=== PATIENT | female | born 1930 | race Caucasian/White ===

== ENCOUNTER → 2016-12-09 | Outpatient (CLI) | payer MEDICARE, OTHER ==
[~2016-12-09] MED LIST: /PANT40TA PO; ACET50TAOT PO; AMBI5TAB PO; AMLO5TAB2 PO; AMLODIPINE PO; CALC25TA PO; CALC600T21 PO; CALC600T57 PO; CARA1TAB2 PO; COUM2.5T11 PO; ECOT81TA5 PO; ELIQ5TAB PO; FERROUS SULFATE PO; LEVS0.124 SL; LIPI10TA PO; LISI40TAB PO; LISIPOW PO; LUBR0.5D OU; MELA5TAB14 PO; METO50TA2 PO; METOPROLOL PO; MIRA3350 PO; PERCOCET PO; PROT1TAB2 PO; SIMETHICONE PO; TYLE325T5 PO; TYLENOL WITH CODEINE PO; VITA100037 PO; VITMTA PO
--- NOTE | 2016-12-09 09:46 | REPMRS ---
Patient History The patient states she has not had a clinical breast exam in over a year. Patient is postmenopausal and has history of liver cancer at age 73. Family history of endometrial cancer in mother under age 50 and breast cancer in paternal aunt at age 50 or over. Digital Woman Screen Mammo: December 09, 2016 - Exam #: [id number] Bilateral CC and MLO view(s) were taken. Technologist: Ca Galvan, Technologist Prior study comparison: December 09, 2015, digital woman screen mammo performed at [facility]. December 08, 2014, digital woman screen mammo performed at [facility]. December 09, 2013, digital woman screen mammo performed at [facility]. FINDINGS: There are scattered fibroglandular densities. There has been no change in the appearance of the mammogram from the prior studies. There is a mild amount of scattered fibroglandular density which is fairly symmetric. There is no interval development of dominant mass, architectural distortion, or clustered microcalcification suggestive of malignancy. ASSESSMENT: BI-RADS/ACR category 1 mammogram. Negative. Recommendation Routine screening mammogram in 1 year (for women over age 40). This mammogram was interpreted with the aid of an FDA-approved computer-aided dectection system. Electronically Signed By: Sonu Yates MD 12/09/16 0971
== END ==
LOC: M WHC 09:04
PROVIDERS: ATTEND Family Medicine
DX: Z12.31 Encounter for screening mammogram for malignant neoplasm of breast (principal)

== ENCOUNTER → 2017-01-09 | Outpatient (REF) | payer MEDICARE, OTHER ==
[2017-01-09 12:01] LABS: BASO % 0.7 % (0.0-1.0); EOS # 0.2 K/mm3 (0.0-0.50); EOS % 3.1 % (0.0-3.0); LARGE UNSTAINED CELL # 0.3 K/mm3 (0.0-0.4); LARGE UNSTAINED CELL % 4.8 % (0.0-4.0); LYMPH % 27.3 % (24.0-44.0); MEAN CORPUSCULAR HGB CONC 32.8 g/dl (32.0-36.5); MEAN CORPUSCULAR VOLUME 100.7 fl (80.0-96.0); MONO # 0.7 K/mm3 (0.0-0.8); MONO % 11.4 % (0.0-5.0); NEUTROPHILS # 3.3 K/mm3 (1.8-7.7); NEUTROPHILS % 52.7 % (36.0-66.0); PLATELET COUNT, AUTOMATED 225 k/mm3 (150-450); WHITE BLOOD COUNT 6.3 K/mm3 (4.0-10.0)
[2017-01-09 12:09] LABS: ANION GAP 6 MEQ/L (8-16); BLOOD UREA NITROGEN 13 MG/DL (7-18); CARBON DIOXIDE LEVEL 29 MEQ/L (21-32); CHLORIDE LEVEL 107 MEQ/L (98-107); CREATININE FOR GFR 0.89 MG/DL (0.55-1.02); GLOMERULAR FILTRATION RATE > 60.0 (>32); GLUCOSE, FASTING 92 MG/DL (83-110); POTASSIUM SERUM 4.1 MEQ/L (3.5-5.1); SODIUM LEVEL 142 MEQ/L (136-145)
[2017-01-09 12:10] LABS: ALBUMIN 3.8 GM/DL (3.2-5.2); ALBUMIN/GLOBULIN RATIO 1.46 (1.00-1.93); ALKALINE PHOSPHATASE 73 U/L (45-117); ALT/SGPT 25 U/L (12-78); AST/SGOT 21 U/L (15-37); BILIRUBIN,TOTAL 0.5 MG/DL (0.2-1.0); CALCIUM LEVEL 8.8 MG/DL (8.8-10.2); CHOLESTEROL LEVEL 184 MG/DL (<200); FERRITIN 32 NG/ML (8-252); PERCENT SATURATION 24.6 % (13.2-37.4); TOTAL IRON BINDING CAPACITY 325 UG/DL (250-450); TOTAL PROTEIN 6.4 GM/DL (6.4-8.2); TRIGLYCERIDES LEVEL 65 MG/DL (<150)
== END ==
LOC: M SFHCPLAZ 08:19
PROVIDERS: ATTEND Family Medicine
DX: D50.9 Iron deficiency anemia, unspecified (principal); N18.3 Chronic kidney disease, stage 3 (moderate); E78.5 Hyperlipidemia, unspecified

== ENCOUNTER → 2017-03-15 | Outpatient (CLI) | payer MEDICARE, OTHER ==
[~2017-03-15] MED LIST changes: -CALC600T21 PO; +CALC600T60 PO; +CARA1TAB6 PO; -COUM2.5T11 PO; +COUM2.5T17 PO; -MELA5TAB14 PO; +MELA5TAB17 PO; -METO50TA2 PO; +METO50TA7 PO; +VITA100067 PO
[2017-03-15 12:10] LABS: ANION GAP 7 MEQ/L (8-16); BLOOD UREA NITROGEN 14 MG/DL (7-18); CALCIUM LEVEL 9.3 MG/DL (8.8-10.2); CARBON DIOXIDE LEVEL 28 MEQ/L (21-32); CHLORIDE LEVEL 103 MEQ/L (98-107); CREATININE FOR GFR 0.81 MG/DL (0.55-1.02); GLOMERULAR FILTRATION RATE > 60.0 (>32); GLUCOSE, FASTING 87 MG/DL (83-110); POTASSIUM SERUM 4.2 MEQ/L (3.5-5.1); SODIUM LEVEL 138 MEQ/L (136-145)
--- NOTE | 2017-03-16 15:19 | ECGEPIP ---
Stationary ECG Study [facility] Test Date: 2017-03-15 Pat Name: MAGDALENE CHAMPAGNE Department: Room: - Gender: F Aquatics Director: [facility] : [id number] Requested By: DANE Alonzo Order Number: [id number] Reading MD: Geraldo Zepeda Measurements Intervals [place] Rate: 64 P: 58 OR: 197 QRS: -4 QRSD: 106 T: 10 QT: 375 QTc: 389 Interpretive Statements SINUS RHYTHM MODERATE VOLTAGE CRITERIA FOR LVH Poor R-wave progression. Minor nonspecific ST-T abnormalities. No significant change compared with 11/17/2015. Electronically Signed On 03-16-2017 15:18:57 EDT by Geraldo Zepeda
== END ==
LOC: M LAB 10:40
PROVIDERS: ATTEND Ophthalmology
DX: H25.12 Age-related nuclear cataract, left eye (principal)

== ENCOUNTER → 2017-05-11 | Outpatient (REF) | payer MEDICARE, OTHER ==
[2017-05-11 12:57] LABS: INR 1.16
[2017-05-11 12:59] LABS: BASO % 0.6 % (0.0-1.0); EOS # 0.1 K/mm3 (0.0-0.50); LARGE UNSTAINED CELL # 0.3 K/mm3 (0.0-0.4); LARGE UNSTAINED CELL % 5.3 % (0.0-4.0); LYMPH % 28.1 % (24.0-44.0); MEAN CORPUSCULAR HEMOGLOBIN 32.7 pg (27.0-33.0); MEAN CORPUSCULAR HGB CONC 32.1 g/dl (32.0-36.5); MEAN CORPUSCULAR VOLUME 101.7 fl (80.0-96.0); MONO # 0.6 K/mm3 (0.0-0.8); MONO % 10.3 % (0.0-5.0); NEUTROPHILS # 3.3 K/mm3 (1.8-7.7); NEUTROPHILS % 53.6 % (36.0-66.0); PLATELET COUNT, AUTOMATED 228 k/mm3 (150-450); RED CELL DISTRIBUTION WIDTH 13.5 % (11.5-14.5); WHITE BLOOD COUNT 6.1 K/mm3 (4.0-10.0)
[2017-05-11 13:09] LABS: VITAMIN B12 LEVEL 852 PG/ML (247-911)
[2017-05-11 13:50] LABS: ALBUMIN 3.8 GM/DL (3.2-5.2); ALBUMIN/GLOBULIN RATIO 1.27 (1.00-1.93); ALKALINE PHOSPHATASE 79 U/L (45-117); ALT/SGPT 20 U/L (12-78); ANION GAP 10 MEQ/L (8-16); AST/SGOT 19 U/L (15-37); BILIRUBIN,TOTAL 0.5 MG/DL (0.2-1.0); BLOOD UREA NITROGEN 16 MG/DL (7-18); CALCIUM LEVEL 9.1 MG/DL (8.8-10.2); CARBON DIOXIDE LEVEL 28 MEQ/L (21-32); CHLORIDE LEVEL 104 MEQ/L (98-107); CREATININE FOR GFR 0.87 MG/DL (0.55-1.02); FREE T4 1.14 NG/DL (0.76-1.46); GLOMERULAR FILTRATION RATE > 60.0 (>32); GLUCOSE, FASTING 88 MG/DL (83-110); MAGNESIUM LEVEL 2.1 MG/DL (1.8-2.4); POTASSIUM SERUM 4.1 MEQ/L (3.5-5.1); SODIUM LEVEL 142 MEQ/L (136-145); TOTAL PROTEIN 6.8 GM/DL (6.4-8.2)
[2017-05-12 11:34] LABS: PRETREATED FOLATE FOR RBCFOL 11.5 NG/ML
== END ==
LOC: M SFHCPLAZ 08:58
PROVIDERS: ATTEND Family Medicine
DX: C22.1 Intrahepatic bile duct carcinoma (principal); E78.5 Hyperlipidemia, unspecified; I10 Essential (primary) hypertension

== ENCOUNTER → 2017-08-01 | Outpatient (REF) | payer MEDICARE, OTHER | LOC: M LAB REF 19:02 | PROVIDERS: ATTEND Family Medicine | DX: C44.529 Squamous cell carcinoma of skin of other part of trunk (principal) ==

== ENCOUNTER → 2017-09-07 | Outpatient (REF) | payer MEDICARE, OTHER ==
[2017-09-07 12:21] LABS: ALBUMIN 3.8 GM/DL (3.2-5.2); ALBUMIN/GLOBULIN RATIO 1.52 (1.00-1.93); ALKALINE PHOSPHATASE 78 U/L (45-117); ALT/SGPT 20 U/L (12-78); ANION GAP 8 MEQ/L (8-16); AST/SGOT 20 U/L (7-37); BILIRUBIN,TOTAL 0.5 MG/DL (0.2-1.0); BLOOD UREA NITROGEN 19 MG/DL (7-18); C REACTIVE PROTEIN QUANTITATIV < 0.30 MG/DL (0.00-0.30); CALCIUM LEVEL 8.6 MG/DL (8.8-10.2); CARBON DIOXIDE LEVEL 29 MEQ/L (21-32); CHLORIDE LEVEL 106 MEQ/L (98-107); CHOLESTEROL LEVEL 180 MG/DL (<200); CHOLESTEROL RISK RATIO 1.538 (<5); CPK CREATINE PHOSPHOKINASE 52 U/L (26-192); CREATININE FOR GFR 0.84 MG/DL (0.55-1.02); GLOMERULAR FILTRATION RATE > 60.0 (>32); GLUCOSE, FASTING 91 MG/DL (83-110); HDL CHOLESTEROL 117 MG/DL (>40); LDL CHOLESTEROL 50.2 MG/DL (<100); NON-HDL-C 63 MG/DL; POTASSIUM SERUM 3.9 MEQ/L (3.5-5.1); SODIUM LEVEL 143 MEQ/L (136-145); TOTAL PROTEIN 6.3 GM/DL (6.4-8.2); TRIGLYCERIDES LEVEL 64 MG/DL (<150)
[2017-09-07 12:23] LABS: TOTAL 25(OH) VITAMIN D 40.5 NG/ML (30.0-100.0)
[2017-09-07 12:24] LABS: PTH INTACT 36.7 PG/ML (14.0-72.0)
== END ==
LOC: M SFHCPLAZ 09:16
DX: E78.5 Hyperlipidemia, unspecified (principal); E55.9 Vitamin D deficiency, unspecified
CPT/HCPCS: 82550

== ENCOUNTER → 2017-09-19 | Outpatient (CLI) | payer MEDICARE, OTHER | LOC: M RAD 08:06 | DX: C22.1 Intrahepatic bile duct carcinoma (principal); N28.1 Cyst of kidney, acquired | CPT/HCPCS: 76705 ==

== ENCOUNTER 2017-09-29 02:57 | Observation (INO) | payer MEDICARE, OTHER ==
[2017-09-29] MEDS ORDERED: METOPROLOL 5 MG/5 ML VIAL As Ordered ×2 (03:28)
[2017-09-29] MEDS: METOPROLOL 5 MG/5 ML VIAL IV ×6 (03:34→03:46)
[2017-09-29] MEDS: NS 1,000 ML IV ×2 (03:38)
[2017-09-29 03:41] LABS: BASO # 0.1 10^3/uL (0.0-0.2); BASO % 0.7 % (0.0-1.0); EOS # 0.3 10^3/uL (0.0-0.50); EOS % 3.9 % (0.0-3.0); HEMATOCRIT 38.1 % (36.0-47.0); HEMOGLOBIN 12.3 g/dl (12.0-16.0); IMMATURE GRANULOCYTE % 0.1 % (0-0); LYMPH # 2.3 10^3/uL (1.5-4.5); LYMPH % 34.2 % (24.0-44.0); MEAN CORPUSCULAR HGB CONC 32.3 g/dl (32.0-36.5); MEAN CORPUSCULAR VOLUME 99.2 fl (80.0-96.0); MONO # 1.3 10^3/uL (0.0-0.8); MONO % 18.8 % (0.0-5.0); NEUTROPHILS # 2.9 10^3/uL (1.8-7.7); NEUTROPHILS % 42.3 % (36.0-66.0); PLATELET COUNT, AUTOMATED 237 10^3/uL (150-450); RED BLOOD COUNT 3.84 10^6/uL (4.00-5.40); RED CELL DISTRIBUTION WIDTH 15.2 % (11.5-14.5); WHITE BLOOD COUNT 6.9 10^3/uL (4.0-10.0)
[2017-09-29] MEDS: METOPROLOL TART 50 MG TAB PO ×10 (03:56→20:55)
[2017-09-29] MEDS: ASPIRIN 81 MG CHEW TABLET PO ×2 (03:56)
[2017-09-29 03:57] LABS: ANION GAP 7 MEQ/L (8-16); BLOOD UREA NITROGEN 20 MG/DL (7-18); CALCIUM LEVEL 9.1 MG/DL (8.8-10.2); CARBON DIOXIDE LEVEL 28 MEQ/L (21-32); CHLORIDE LEVEL 108 MEQ/L (98-107); CK-MB VALUE MASS 1.1 NG/ML (0.0-3.6); CPK CREATINE PHOSPHOKINASE 62 U/L (26-192); CREATININE FOR GFR 1.01 MG/DL (0.55-1.02); GLOMERULAR FILTRATION RATE 55.5 (>32); GLUCOSE, FASTING 117 MG/DL (70-100); MB/CK RELATIVE INDEX 1.77 (< OR =4); POTASSIUM SERUM 3.3 MEQ/L (3.5-5.1); SODIUM LEVEL 143 MEQ/L (136-145); TROPONIN I < 0.02 NG/ML (< 0.10)
[2017-09-29] MEDS ORDERED: POTASSIUM CHLORIDE 10 MEQ SR TABLET PO ×2 (05:45)
[2017-09-29] MEDS: POTASSIUM CHLORIDE 10 MEQ SR TABLET PO ×2 (05:55)
[2017-09-29] MEDS: DIGOXIN INJ 0.5 MG/2 ML AMP (J1160) IV ×8 (05:56→18:06)
[2017-09-29] MEDS: NS 500 ML IV ×2 (05:58)
[2017-09-29] MEDS ORDERED: POLYVINYL ALCOHOL OPHTH SOLN 15 ML(LIQUITEARS) OU ×2 (06:30)
[2017-09-29] MEDS ORDERED: APIXABAN 5 MG TAB (ELIQUIS) PO ×2 (09:00)
[2017-09-29] MEDS: LISINOPRIL 40 MG TAB PO ×2 (09:00)
[2017-09-29] MEDS: AMITRIPTYLINE 10 MG TAB PO ×4 (09:00→20:55)
[2017-09-29] MEDS: MULTIVITAMINS/MINERALS THERAP 1 TAB PO ×2 (09:00)
[2017-09-29] MEDS: SUCRALFATE 1 GM TAB PO ×4 (09:00→20:54)
[2017-09-29] MEDS: MIRALAX *UNIT DOSE* 17GM PACKET PO ×2 (09:00)
[2017-09-29] MEDS: APIXABAN 5 MG TAB (ELIQUIS) PO ×4 (09:00→20:54)
[2017-09-29 13:29] LABS: ANION GAP 10 MEQ/L (8-16); BLOOD UREA NITROGEN 18 MG/DL (7-18); CALCIUM LEVEL 8.4 MG/DL (8.8-10.2); CARBON DIOXIDE LEVEL 20 MEQ/L (21-32); CHLORIDE LEVEL 113 MEQ/L (98-107); CREATININE FOR GFR 0.82 MG/DL (0.55-1.02); GLOMERULAR FILTRATION RATE > 60.0 (>32); GLUCOSE, FASTING 88 MG/DL (70-100); MAGNESIUM LEVEL 2.1 MG/DL (1.8-2.4); POTASSIUM SERUM 4.8 MEQ/L (3.5-5.1); SODIUM LEVEL 143 MEQ/L (136-145)
[2017-09-29 13:31] LABS: CK-MB VALUE MASS 2.6 NG/ML (0.0-3.6); CPK CREATINE PHOSPHOKINASE 57 U/L (26-192); MB/CK RELATIVE INDEX 4.56 (< OR =4); TROPONIN I 0.51 NG/ML (< 0.10)
[2017-09-29 18:24] LABS: CK-MB VALUE MASS 2.2 NG/ML (0.0-3.6); CPK CREATINE PHOSPHOKINASE 60 U/L (26-192); MB/CK RELATIVE INDEX 3.66 (< OR =4); TROPONIN I 0.53 NG/ML (< 0.10)
[2017-09-29] MEDS: zolPIDEM TARTRATE 5 MG TAB PO ×2 (20:54)
[2017-09-29] MEDS: PANTOPRAZOLE 40MG TAB (PROTONIX) PO ×2 (20:54)
[2017-09-29] MEDS: ATORVASTATIN 10 MG TAB PO ×2 (20:54)
[2017-09-29] MEDS: ASPIRIN 81 MG ENTERIC TAB PO ×2 (20:55)
[2017-09-29] MEDS ORDERED: amLODIPine 5 MG TAB PO ×2 (21:00)
[2017-09-30 00:20] LABS: CK-MB VALUE MASS 1.5 NG/ML (0.0-3.6); CPK CREATINE PHOSPHOKINASE 54 U/L (26-192); MB/CK RELATIVE INDEX 2.77 (< OR =4); TROPONIN I 0.42 NG/ML (< 0.10)
[2017-09-30 06:49] LABS: HEMATOCRIT 32.9 % (36.0-47.0); HEMOGLOBIN 10.7 g/dl (12.0-16.0); MEAN CORPUSCULAR HEMOGLOBIN 31.9 pg (27.0-33.0); MEAN CORPUSCULAR HGB CONC 32.5 g/dl (32.0-36.5); MEAN CORPUSCULAR VOLUME 98.2 fl (80.0-96.0); PLATELET COUNT, AUTOMATED 219 10^3/uL (150-450); RED BLOOD COUNT 3.35 10^6/uL (4.00-5.40); RED CELL DISTRIBUTION WIDTH 15.7 % (11.5-14.5); WHITE BLOOD COUNT 7.4 10^3/uL (4.0-10.0)
[2017-09-30 07:15] LABS: ALBUMIN 2.9 GM/DL (3.2-5.2); ALBUMIN/GLOBULIN RATIO 1.07 (1.00-1.93); ALKALINE PHOSPHATASE 66 U/L (45-117); ALT/SGPT 19 U/L (12-78); ANION GAP 8 MEQ/L (8-16); AST/SGOT 19 U/L (7-37); BILIRUBIN,TOTAL 0.3 MG/DL (0.2-1.0); BLOOD UREA NITROGEN 21 MG/DL (7-18); CALCIUM LEVEL 8.3 MG/DL (8.8-10.2); CARBON DIOXIDE LEVEL 24 MEQ/L (21-32); CHLORIDE LEVEL 112 MEQ/L (98-107); CREATININE FOR GFR 0.86 MG/DL (0.55-1.02); DIGOXIN LEVEL 0.8 NG/ML (0.5-2.0); GLOMERULAR FILTRATION RATE > 60.0 (>32); GLUCOSE, FASTING 91 MG/DL (70-100); MAGNESIUM LEVEL 2.1 MG/DL (1.8-2.4); POTASSIUM SERUM 3.8 MEQ/L (3.5-5.1); SODIUM LEVEL 144 MEQ/L (136-145); TOTAL PROTEIN 5.6 GM/DL (6.4-8.2)
[2017-09-30] MEDS: MULTIVITAMINS/MINERALS THERAP 1 TAB PO ×2 (08:24)
[2017-09-30] MEDS: APIXABAN 5 MG TAB (ELIQUIS) PO ×2 (08:24)
[2017-09-30] MEDS: SUCRALFATE 1 GM TAB PO ×2 (08:24)
[2017-09-30] MEDS: AMITRIPTYLINE 10 MG TAB PO ×2 (08:24)
[2017-09-30] MEDS: METOPROLOL TART 50 MG TAB PO ×2 (08:25)
[2017-09-30] MEDS: MIRALAX *UNIT DOSE* 17GM PACKET PO ×2 (08:25)
== END 2017-09-30 14:55 | disposition home or self-care (01) ==
LOC: M ED 02:57 → M ED INP 05:25
DX: I48.0 Paroxysmal atrial fibrillation (principal); Z79.01 Long term (current) use of anticoagulants; Z79.899 Other long term (current) drug therapy; E87.6 Hypokalemia; N18.3 Chronic kidney disease, stage 3 (moderate); D75.89 Other specified diseases of blood and blood-forming organs; Z85.09 Personal history of malignant neoplasm of other digestive organs; R91.1 Solitary pulmonary nodule; Z79.82 Long term (current) use of aspirin
CPT/HCPCS: 96376

== ENCOUNTER → 2017-10-03 | Outpatient (REF) | payer MEDICARE, OTHER ==
[2017-10-03 12:30] LABS: BASO # 0.1 10^3/uL (0.0-0.2); BASO % 0.8 % (0.0-1.0); EOS # 0.2 10^3/uL (0.0-0.50); EOS % 3.1 % (0.0-3.0); HEMATOCRIT 37.9 % (36.0-47.0); HEMOGLOBIN 12.1 g/dl (12.0-16.0); IMMATURE GRANULOCYTE % 0.5 % (0-0); LYMPH # 1.9 10^3/uL (1.5-4.5); MEAN CORPUSCULAR HEMOGLOBIN 31.9 pg (27.0-33.0); MEAN CORPUSCULAR HGB CONC 31.9 g/dl (32.0-36.5); MONO % 14.7 % (0.0-5.0); NEUTROPHILS # 3.4 10^3/uL (1.8-7.7); NEUTROPHILS % 51.9 % (36.0-66.0); PLATELET COUNT, AUTOMATED 231 10^3/uL (150-450); RED BLOOD COUNT 3.79 10^6/uL (4.00-5.40); RED CELL DISTRIBUTION WIDTH 15.4 % (11.5-14.5); RETIC HEMOGLOBIN EQUIVALENT 35.8 pg (24-36); RETICULOCYTE # 92.9 10^9/L (17-77); RETICULOCYTE % 2.5 % (0.5-1.5); WHITE BLOOD COUNT 6.5 10^3/uL (4.0-10.0)
[2017-10-03 13:00] LABS: ALBUMIN 3.8 GM/DL (3.2-5.2); ANION GAP 6 MEQ/L (8-16); BLOOD UREA NITROGEN 14 MG/DL (7-18); CALCIUM LEVEL 9.2 MG/DL (8.8-10.2); CARBON DIOXIDE LEVEL 30 MEQ/L (21-32); CHLORIDE LEVEL 106 MEQ/L (98-107); CREATININE FOR GFR 0.89 MG/DL (0.55-1.30); GLOMERULAR FILTRATION RATE > 60.0 (>32); GLUCOSE, FASTING 83 MG/DL (70-100); MAGNESIUM LEVEL 2.2 MG/DL (1.8-2.4); PHOSPHORUS LEVEL 3.8 MG/DL (2.5-4.9); POTASSIUM SERUM 4.2 MEQ/L (3.5-5.1); SODIUM LEVEL 142 MEQ/L (136-145); TROPONIN I < 0.02 NG/ML (< 0.10)
== END ==
LOC: M SFHCPLAZ 09:59
DX: I48.91 Unspecified atrial fibrillation (principal); E78.5 Hyperlipidemia, unspecified
CPT/HCPCS: 83735

== ENCOUNTER → 2017-10-05 | Outpatient (CLI) | payer MEDICARE, OTHER | LOC: M SLEEP HO 14:51 | DX: I48.91 Unspecified atrial fibrillation (principal) | CPT/HCPCS: G0399 ==

== ENCOUNTER → 2017-10-06 | Outpatient (REF) | payer MEDICARE, OTHER ==
[2017-10-06 18:34] LABS: URIC ACID 4.1 MG/DL (2.6-6.0)
[2017-10-06 18:34] LABS: C REACTIVE PROTEIN QUANTITATIV 4.59 MG/DL (0.00-0.30)
== END ==
LOC: M SFHCPLAZ 15:38
DX: M79.671 Pain in right foot (principal)
CPT/HCPCS: 84550

== ENCOUNTER → 2017-10-13 | Outpatient (CLI) | payer MEDICARE, OTHER | LOC: M RAD 10:25 | DX: M79.671 Pain in right foot (principal); M79.89 Other specified soft tissue disorders | CPT/HCPCS: 73620 ==

== ENCOUNTER → 2017-12-07 | Outpatient (CLI) | payer MEDICARE, OTHER | LOC: M SLEEP 19:20 | DX: G47.33 Obstructive sleep apnea (adult) (pediatric) (principal) | CPT/HCPCS: 95811 ==

== ENCOUNTER → 2018-01-04 | Outpatient (REF) | payer MEDICARE, OTHER ==
[2018-01-04 12:13] LABS: BASO # 0.1 10^3/uL (0.0-0.2); BASO % 0.7 % (0.0-1.0); EOS # 0.1 10^3/uL (0.0-0.50); EOS % 1.9 % (0.0-3.0); HEMATOCRIT 37.4 % (36.0-47.0); HEMOGLOBIN 12.3 g/dl (12.0-15.5); IMMATURE GRANULOCYTE % 0.3 % (0-3.0); LYMPH # 2.1 10^3/uL (1.5-4.5); LYMPH % 30.4 % (24.0-44.0); MEAN CORPUSCULAR HEMOGLOBIN 31.9 pg (27.0-33.0); MEAN CORPUSCULAR HGB CONC 32.9 g/dl (32.0-36.5); MEAN CORPUSCULAR VOLUME 97.1 fl (80.0-96.0); MONO # 0.9 10^3/uL (0.0-0.8); MONO % 13.2 % (0.0-5.0); NEUTROPHILS # 3.6 10^3/uL (1.8-7.7); NEUTROPHILS % 53.5 % (36.0-66.0); PLATELET COUNT, AUTOMATED 233 10^3/uL (150-450); RED BLOOD COUNT 3.85 10^6/uL (4.00-5.40); RED CELL DISTRIBUTION WIDTH 15.9 % (11.5-14.5); WHITE BLOOD COUNT 6.7 10^3/uL (4.0-10.0)
[2018-01-04 13:03] LABS: ALBUMIN 3.7 GM/DL (3.2-5.2); ALBUMIN/GLOBULIN RATIO 1.32 (1.00-1.93); ALKALINE PHOSPHATASE 77 U/L (45-117); ALT/SGPT 21 U/L (12-78); ANION GAP 7 MEQ/L (8-16); AST/SGOT 22 U/L (7-37); BILIRUBIN,TOTAL 0.5 MG/DL (0.2-1.0); BLOOD UREA NITROGEN 17 MG/DL (7-18); CALCIUM LEVEL 9.3 MG/DL (8.8-10.2); CARBON DIOXIDE LEVEL 30 MEQ/L (21-32); CHLORIDE LEVEL 106 MEQ/L (98-107); CREATININE FOR GFR 1.03 MG/DL (0.55-1.30); FERRITIN 29 NG/ML (8-252); GLOMERULAR FILTRATION RATE 54.2 (>32); GLUCOSE, FASTING 82 MG/DL (70-100); IRON (FE) 89 UG/DL (50-170); MAGNESIUM LEVEL 2.1 MG/DL (1.8-2.4); PERCENT SATURATION 30.1 % (13.2-45.0); POTASSIUM SERUM 3.8 MEQ/L (3.5-5.1); SODIUM LEVEL 143 MEQ/L (136-145); TOTAL IRON BINDING CAPACITY 296 UG/DL (250-450); TOTAL PROTEIN 6.5 GM/DL (6.4-8.2)
== END ==
LOC: M SFHCPLAZ 08:38
DX: D50.9 Iron deficiency anemia, unspecified (principal); N18.3 Chronic kidney disease, stage 3 (moderate)
CPT/HCPCS: 83550

== ENCOUNTER → 2018-05-16 | Outpatient (REF) | payer MEDICARE, OTHER ==
[2018-05-16 12:23] LABS: BASO # 0.1 10^3/uL (0.0-0.2); BASO % 0.9 % (0.0-1.0); EOS # 0.2 10^3/uL (0.0-0.50); HEMATOCRIT 37.7 % (36.0-47.0); HEMOGLOBIN 12.2 g/dl (12.0-15.5); IMMATURE GRANULOCYTE % 0.2 % (0-3.0); LYMPH # 2.1 10^3/uL (1.5-4.5); LYMPH % 35.2 % (24.0-44.0); MEAN CORPUSCULAR HEMOGLOBIN 31.6 pg (27.0-33.0); MEAN CORPUSCULAR HGB CONC 32.4 g/dl (32.0-36.5); MEAN CORPUSCULAR VOLUME 97.7 fl (80.0-96.0); MONO % 17.4 % (0.0-5.0); NEUTROPHILS # 2.5 10^3/uL (1.8-7.7); NEUTROPHILS % 42.3 % (36.0-66.0); PLATELET COUNT, AUTOMATED 235 10^3/uL (150-450); RED BLOOD COUNT 3.86 10^6/uL (4.00-5.40); RED CELL DISTRIBUTION WIDTH 15.8 % (11.5-14.5); RETIC HEMOGLOBIN EQUIVALENT 33.7 pg (24-36); RETICULOCYTE # 85.7 10^9/L (17-77); RETICULOCYTE % 2.2 % (0.5-1.5); WHITE BLOOD COUNT 5.8 10^3/uL (4.0-10.0)
[2018-05-16 13:18] LABS: ALBUMIN 3.9 GM/DL (3.2-5.2); ALBUMIN/GLOBULIN RATIO 1.39 (1.00-1.93); ALKALINE PHOSPHATASE 97 U/L (45-117); ALT/SGPT 22 U/L (12-78); ANION GAP 7 MEQ/L (8-16); AST/SGOT 29 U/L (7-37); BILIRUBIN,TOTAL 0.5 MG/DL (0.2-1.0); BLOOD UREA NITROGEN 15 MG/DL (7-18); C REACTIVE PROTEIN QUANTITATIV < 0.30 MG/DL (0.00-0.30); CALCIUM LEVEL 9.3 MG/DL (8.8-10.2); CARBON DIOXIDE LEVEL 28 MEQ/L (21-32); CHLORIDE LEVEL 109 MEQ/L (98-107); CHOLESTEROL LEVEL 170 MG/DL (<200); CHOLESTEROL RISK RATIO 1.504 (<5); CPK CREATINE PHOSPHOKINASE 98 U/L (26-192); FREE T4 1.05 NG/DL (0.76-1.46); GLUCOSE, FASTING 87 MG/DL (70-100); HDL CHOLESTEROL 113 MG/DL (>40); LDL CHOLESTEROL 44 MG/DL (<100); NON-HDL-C 57 MG/DL; POTASSIUM SERUM 4.7 MEQ/L (3.5-5.1); SODIUM LEVEL 144 MEQ/L (136-145); TOTAL PROTEIN 6.7 GM/DL (6.4-8.2); TRIGLYCERIDES LEVEL 67 MG/DL (<150)
== END ==
LOC: M SFHCPLAZ 08:35
DX: N18.3 Chronic kidney disease, stage 3 (moderate) (principal); E78.5 Hyperlipidemia, unspecified
CPT/HCPCS: 82550

== ENCOUNTER 2018-08-05 07:19 | Inpatient (IN) | payer MEDICARE, OTHER ==
[2018-08-05 08:00] LABS: BASO % 0.3 % (0.0-1.0); EOS % 0.3 % (0.0-3.0); HEMATOCRIT 37.9 % (36.0-47.0); HEMOGLOBIN 12.4 g/dl (12.0-15.5); IMMATURE GRANULOCYTE % 0.6 % (0-3.0); LYMPH # 2.6 10^3/uL (1.5-4.5); LYMPH % 17.4 % (24.0-44.0); MEAN CORPUSCULAR HEMOGLOBIN 31.8 pg (27.0-33.0); MEAN CORPUSCULAR HGB CONC 32.7 g/dl (32.0-36.5); MEAN CORPUSCULAR VOLUME 97.2 fl (80.0-96.0); MONO % 13.9 % (0.0-5.0); NEUTROPHILS # 10.2 10^3/uL (1.8-7.7); NEUTROPHILS % 67.5 % (36.0-66.0); PLATELET COUNT, AUTOMATED 185 10^3/uL (150-450); RED CELL DISTRIBUTION WIDTH 15.9 % (11.5-14.5); WHITE BLOOD COUNT 15.1 10^3/uL (4.0-10.0)
[2018-08-05 08:30] LABS: ANION GAP 8 MEQ/L (8-16); BLOOD UREA NITROGEN 35 MG/DL (7-18); CALCIUM LEVEL 9.2 MG/DL (8.8-10.2); CARBON DIOXIDE LEVEL 25 MEQ/L (21-32); CHLORIDE LEVEL 105 MEQ/L (98-107); CK-MB VALUE MASS < 1.0 NG/ML (<3.6); CPK CREATINE PHOSPHOKINASE 64 U/L (26-192); CREATININE FOR GFR 1.48 MG/DL (0.55-1.30); GLOMERULAR FILTRATION RATE 35.6 (>32); GLUCOSE, FASTING 102 MG/DL (70-100); MB/CK RELATIVE INDEX 1.56 (< OR =4); POTASSIUM SERUM 4.5 MEQ/L (3.5-5.1); SODIUM LEVEL 138 MEQ/L (136-145); TROPONIN I < 0.02 NG/ML (< 0.10)
[2018-08-05 08:34] LABS: MONO # 2.1 10^3/uL (0.0-0.8); POSITIVE DIFF POS FLAG
[2018-08-05] MEDS: DIGOXIN INJ 0.5 MG/2 ML AMP (J1160) IV ×2 (08:37→14:36)
[2018-08-05] MEDS: METOPROLOL TARTRATE 100 MG TAB PO (08:57)
[2018-08-05] MEDS: LISINOPRIL 40 MG TAB PO (08:58)
[2018-08-05] MEDS: amLODIPine 5 MG TAB PO (08:58)
[2018-08-05] MEDS: APIXABAN 5 MG TAB (ELIQUIS) PO (09:00)
[2018-08-05 09:01] LABS: MAGNESIUM LEVEL 2.2 MG/DL (1.8-2.4)
[2018-08-05] MEDS: METOPROLOL 5 MG/5 ML VIAL IV ×3 (09:50→10:00)
[2018-08-05] MEDS: AMIODARONE HCL 150 MG in APPROPRIATE DILUENT 1 EA IV ×3 (11:17→17:49)
[2018-08-05] MEDS: cefTRIAXone SOD 2 GM in D5W MINI-BAG PLUS 50 ML IV (11:34)
[2018-08-05 11:39] LABS: LACTIC ACID SEPSIS PROTOCOL 1.6 MMOL/L (0.4-2.0)
[2018-08-05] MEDS: AZITHROMYCIN INJ 500 MG, VIAL MATE ADAPTER 1 EACH in D5W 250 ML IV (12:06)
[2018-08-05] MEDS ORDERED: LEVALBUTEROL 1.25 MG/0.5 ML CONCENTRATE NEB NEB (14:45)
[2018-08-05 14:48] LABS: ABG HCO3 20.7 MEQ/L (22.0-26.0); ABG O2 SATURATION 91.4 % (95.0-99.0); ABG PARTIAL PRESSURE CO2 29.5 mmHg (35.0-45.0); ABG PARTIAL PRESSURE O2 61.1 mmHg (75.0-100.0); ABG STANDARD HCO3 22.7 MEQ/L (22.0-26.0); ABG TOTAL CO2 21.6 MEQ/L (23.0-31.0); ABG pH (ARTERIAL) 7.463 UNITS (7.350-7.450)
[2018-08-05] MEDS: METOPROLOL TART 50 MG TAB PO (14:58)
[2018-08-05] MEDS: VANCOMYCIN HCL 1,000 MG in D5W 250 ML IV (14:59)
[2018-08-05] MEDS: METOPROLOL TART 25 MG TABLET PO ×2 (16:50→20:16)
[2018-08-05 17:34] LABS: HEMOGLOBIN 12.9 g/dl (12.0-15.5); MEAN CORPUSCULAR HEMOGLOBIN 32.4 pg (27.0-33.0); MEAN CORPUSCULAR HGB CONC 33.1 g/dl (32.0-36.5); PLATELET COUNT, AUTOMATED 158 10^3/uL (150-450); RED BLOOD COUNT 3.98 10^6/uL (4.00-5.40); RED CELL DISTRIBUTION WIDTH 15.9 % (11.5-14.5); WHITE BLOOD COUNT 14.1 10^3/uL (4.0-10.0)
[2018-08-05 17:46] LABS: INR 2.36; PROTHROMBIN TIME 26.3 SECONDS (12.1-14.4)
[2018-08-05 18:18] LABS: CK-MB VALUE MASS < 1.0 NG/ML (<3.6); CPK CREATINE PHOSPHOKINASE 56 U/L (26-192); MB/CK RELATIVE INDEX 1.79 (< OR =4); TROPONIN I < 0.02 NG/ML (< 0.10)
[2018-08-05] MEDS: AMIODARONE 200 MG TAB (PACERONE) PO (18:42)
[2018-08-05] MEDS: ASPIRIN 325 MG TAB PO (20:15)
[2018-08-05] MEDS: APIXABAN 2.5 MG TAB (ELIQUIS) PO (20:16)
[2018-08-05] MEDS: PANTOPRAZOLE 40MG TAB (PROTONIX) PO (20:16)
[2018-08-05] MEDS ORDERED: METOPROLOL TART 25 MG TABLET PO (21:00)
[2018-08-05 23:11] LABS: CK-MB VALUE MASS < 1.0 NG/ML (<3.6); CPK CREATINE PHOSPHOKINASE 46 U/L (26-192); MB/CK RELATIVE INDEX 2.17 (< OR =4); TROPONIN I < 0.02 NG/ML (< 0.10)
[2018-08-06] MEDS: AMIODARONE 200 MG TAB (PACERONE) PO ×4 (00:30→17:15)
[2018-08-06 06:15] LABS: BASO % 0.2 % (0.0-1.0); EOS # 0.1 10^3/uL (0.0-0.50); EOS % 0.4 % (0.0-3.0); HEMATOCRIT 34.1 % (36.0-47.0); HEMOGLOBIN 11.5 g/dl (12.0-15.5); IMMATURE GRANULOCYTE % 0.6 % (0-3.0); LYMPH # 2.1 10^3/uL (1.5-4.5); LYMPH % 18.3 % (24.0-44.0); MEAN CORPUSCULAR HEMOGLOBIN 31.9 pg (27.0-33.0); MEAN CORPUSCULAR HGB CONC 33.7 g/dl (32.0-36.5); MEAN CORPUSCULAR VOLUME 94.5 fl (80.0-96.0); MONO # 1.6 10^3/uL (0.0-0.8); MONO % 14.3 % (0.0-5.0); NEUTROPHILS # 7.4 10^3/uL (1.8-7.7); NEUTROPHILS % 66.2 % (36.0-66.0); PLATELET COUNT, AUTOMATED 167 10^3/uL (150-450); RED BLOOD COUNT 3.61 10^6/uL (4.00-5.40); WHITE BLOOD COUNT 11.2 10^3/uL (4.0-10.0)
[2018-08-06 06:36] LABS: ALBUMIN 2.7 GM/DL (3.2-5.2); ALBUMIN/GLOBULIN RATIO 0.87 (1.00-1.93); ALKALINE PHOSPHATASE 104 U/L (45-117); ALT/SGPT 48 U/L (12-78); ANION GAP 9 MEQ/L (8-16); AST/SGOT 39 U/L (7-37); BILIRUBIN,TOTAL 0.6 MG/DL (0.2-1.0); BLOOD UREA NITROGEN 29 MG/DL (7-18); CARBON DIOXIDE LEVEL 23 MEQ/L (21-32); CHLORIDE LEVEL 108 MEQ/L (98-107); CK-MB VALUE MASS < 1.0 NG/ML (<3.6); CPK CREATINE PHOSPHOKINASE 57 U/L (26-192); GLOMERULAR FILTRATION RATE 45.3 (>32); GLUCOSE, FASTING 100 MG/DL (70-100); MB/CK RELATIVE INDEX 1.75 (< OR =4); SODIUM LEVEL 140 MEQ/L (136-145); TOTAL PROTEIN 5.8 GM/DL (6.4-8.2); TROPONIN I < 0.02 NG/ML (< 0.10)
[2018-08-06] MEDS: VANCOMYCIN HCL 1,000 MG, VIAL MATE ADAPTER 1 EACH in D5W 250 ML IV (08:18)
[2018-08-06] MEDS: APIXABAN 2.5 MG TAB (ELIQUIS) PO ×2 (08:31→20:11)
[2018-08-06] MEDS: METOPROLOL TART 25 MG TABLET PO ×4 (08:32→20:12)
[2018-08-06] MEDS: cefTRIAXone SOD 2 GM in D5W 50 ML IV (11:36)
[2018-08-06] MEDS: AZITHROMYCIN INJ 500 MG, VIAL MATE ADAPTER 1 EACH in D5W 250 ML IV (12:38)
[2018-08-06 15:21] LABS: NT-PRO BNP 5425 PG/ML (<450)
[2018-08-06] MEDS: FUROSEMIDE 20 MG TAB PO (15:50)
[2018-08-06] MEDS ORDERED: ACETAMINOPHEN TAB 650MG DOSE (2X325MG) PO (16:45)
[2018-08-06] MEDS: MIRALAX *UNIT DOSE* 17GM PACKET PO (17:14)
[2018-08-06] MEDS: ASPIRIN 325 MG TAB PO (20:11)
[2018-08-06] MEDS: PANTOPRAZOLE 40MG TAB (PROTONIX) PO (20:11)
[2018-08-06] MEDS: FUROSEMIDE 40 MG/4 ML VIAL (J1940) IV (20:54)
[2018-08-06] MEDS: LISINOPRIL 10 MG TAB PO (20:54)
[2018-08-07] MEDS: AMIODARONE 200 MG TAB (PACERONE) PO ×4 (00:03→17:29)
[2018-08-07] MEDS: zolPIDEM TARTRATE 5 MG TAB PO (00:03)
[2018-08-07 06:03] LABS: BASO % 0.3 % (0.0-1.0); EOS # 0.1 10^3/uL (0.0-0.50); EOS % 1.2 % (0.0-3.0); HEMATOCRIT 36.9 % (36.0-47.0); HEMOGLOBIN 12.1 g/dl (12.0-15.5); IMMATURE GRANULOCYTE % 0.4 % (0-3.0); LYMPH # 1.4 10^3/uL (1.5-4.5); LYMPH % 12.8 % (24.0-44.0); MEAN CORPUSCULAR HEMOGLOBIN 31.2 pg (27.0-33.0); MEAN CORPUSCULAR HGB CONC 32.8 g/dl (32.0-36.5); MEAN CORPUSCULAR VOLUME 95.1 fl (80.0-96.0); MONO # 1.6 10^3/uL (0.0-0.8); MONO % 14.9 % (0.0-5.0); NEUTROPHILS # 7.7 10^3/uL (1.8-7.7); NEUTROPHILS % 70.4 % (36.0-66.0); PLATELET COUNT, AUTOMATED 185 10^3/uL (150-450); RED BLOOD COUNT 3.88 10^6/uL (4.00-5.40); RED CELL DISTRIBUTION WIDTH 15.9 % (11.5-14.5)
[2018-08-07 06:11] LABS: ANION GAP 9 MEQ/L (8-16); BLOOD UREA NITROGEN 29 MG/DL (7-18); CALCIUM LEVEL 8.2 MG/DL (8.8-10.2); CARBON DIOXIDE LEVEL 22 MEQ/L (21-32); CHLORIDE LEVEL 106 MEQ/L (98-107); CREATININE FOR GFR 1.23 MG/DL (0.55-1.30); GLOMERULAR FILTRATION RATE 44.1 (>32); GLUCOSE, FASTING 97 MG/DL (70-100); POTASSIUM SERUM 3.7 MEQ/L (3.5-5.1); SODIUM LEVEL 137 MEQ/L (136-145)
[2018-08-07] MEDS: MIRALAX *UNIT DOSE* 17GM PACKET PO (08:28)
[2018-08-07] MEDS: APIXABAN 2.5 MG TAB (ELIQUIS) PO ×2 (08:28→19:42)
[2018-08-07] MEDS: SPIRONOLACTONE 12.5MG PER 1/2 TABLET PO (08:28)
[2018-08-07] MEDS: ATENOLOL 50 MG TAB PO ×2 (08:30→19:43)
[2018-08-07] MEDS: LISINOPRIL 10 MG TAB PO ×2 (08:30→19:42)
[2018-08-07] MEDS: TORSEMIDE 10 MG TABLET PO (09:58)
[2018-08-07] MEDS: cefTRIAXone SOD 2 GM in D5W 50 ML IV (12:22)
[2018-08-07] MEDS: AZITHROMYCIN INJ 500 MG, VIAL MATE ADAPTER 1 EACH in D5W 250 ML IV (14:11)
[2018-08-07] MEDS: PANTOPRAZOLE 40MG TAB (PROTONIX) PO (19:42)
[2018-08-07] MEDS: MOM 30ML SUSPENSION UDC PO (19:43)
[2018-08-07] MEDS: FUROSEMIDE 40 MG/4 ML VIAL (J1940) IV (21:22)
[2018-08-08] MEDS: AMIODARONE 200 MG TAB (PACERONE) PO ×5 (00:19→23:46)
[2018-08-08 05:27] LABS: BASO % 0.3 % (0.0-1.0); EOS # 0.1 10^3/uL (0.0-0.50); EOS % 1.4 % (0.0-3.0); HEMATOCRIT 33.3 % (36.0-47.0); HEMOGLOBIN 11.3 g/dl (12.0-15.5); IMMATURE GRANULOCYTE % 0.3 % (0-3.0); LYMPH # 1.4 10^3/uL (1.5-4.5); LYMPH % 15.1 % (24.0-44.0); MEAN CORPUSCULAR HGB CONC 33.9 g/dl (32.0-36.5); MEAN CORPUSCULAR VOLUME 94.3 fl (80.0-96.0); MONO # 1.9 10^3/uL (0.0-0.8); MONO % 20.8 % (0.0-5.0); NEUTROPHILS # 5.8 10^3/uL (1.8-7.7); NEUTROPHILS % 62.1 % (36.0-66.0); PLATELET COUNT, AUTOMATED 208 10^3/uL (150-450); RED BLOOD COUNT 3.53 10^6/uL (4.00-5.40); RED CELL DISTRIBUTION WIDTH 15.2 % (11.5-14.5); WHITE BLOOD COUNT 9.3 10^3/uL (4.0-10.0)
[2018-08-08 05:44] LABS: ANION GAP 10 MEQ/L (8-16); BLOOD UREA NITROGEN 26 MG/DL (7-18); CALCIUM LEVEL 7.8 MG/DL (8.8-10.2); CARBON DIOXIDE LEVEL 25 MEQ/L (21-32); CHLORIDE LEVEL 103 MEQ/L (98-107); CREATININE FOR GFR 1.16 MG/DL (0.55-1.30); GLOMERULAR FILTRATION RATE 47.2 (>32); GLUCOSE, FASTING 97 MG/DL (70-100); POTASSIUM SERUM 3.4 MEQ/L (3.5-5.1); SODIUM LEVEL 138 MEQ/L (136-145)
[2018-08-08] MEDS: MIRALAX *UNIT DOSE* 17GM PACKET PO (09:00)
[2018-08-08] MEDS: APIXABAN 2.5 MG TAB (ELIQUIS) PO ×2 (09:18→20:31)
[2018-08-08] MEDS: LOSARTAN 50 MG TAB PO ×2 (09:19→20:31)
[2018-08-08] MEDS: SPIRONOLACTONE 12.5MG PER 1/2 TABLET PO (09:19)
[2018-08-08] MEDS: POTASSIUM CHLORIDE 10 MEQ SR TABLET PO ×4 (09:19→20:31)
[2018-08-08] MEDS: TORSEMIDE 10 MG TABLET PO (09:19)
[2018-08-08] MEDS: ATENOLOL 50 MG TAB PO ×2 (09:20→20:30)
[2018-08-08] MEDS ORDERED: SLF 3 ML SYR IV (11:30)
[2018-08-08] MEDS: AZITHROMYCIN 250 MG TAB PO (12:09)
[2018-08-08] MEDS: CEFUROXIME 500 MG TAB PO (12:09)
[2018-08-08] MEDS: SLF 3 ML SYR IV ×2 (14:16→21:03)
[2018-08-08] MEDS: PANTOPRAZOLE 40MG TAB (PROTONIX) PO (20:30)
[2018-08-09] MEDS: AMIODARONE 200 MG TAB (PACERONE) PO ×3 (05:41→17:07)
[2018-08-09] MEDS: SLF 3 ML SYR IV ×3 (05:42→21:19)
[2018-08-09 06:21] LABS: ANION GAP 9 MEQ/L (8-16); BLOOD UREA NITROGEN 26 MG/DL (7-18); CALCIUM LEVEL 8.1 MG/DL (8.8-10.2); CARBON DIOXIDE LEVEL 23 MEQ/L (21-32); CHLORIDE LEVEL 106 MEQ/L (98-107); CREATININE FOR GFR 1.03 MG/DL (0.55-1.30); GLOMERULAR FILTRATION RATE 54.1 (>32); GLUCOSE, FASTING 94 MG/DL (70-100); POTASSIUM SERUM 4.2 MEQ/L (3.5-5.1); SODIUM LEVEL 138 MEQ/L (136-145)
[2018-08-09] MEDS: LOSARTAN 50 MG TAB PO ×2 (08:34→20:20)
[2018-08-09] MEDS: ATENOLOL 50 MG TAB PO ×2 (08:34→20:20)
[2018-08-09] MEDS: SPIRONOLACTONE 12.5MG PER 1/2 TABLET PO (08:34)
[2018-08-09] MEDS: TORSEMIDE 10 MG TABLET PO (08:34)
[2018-08-09] MEDS: APIXABAN 2.5 MG TAB (ELIQUIS) PO ×2 (08:34→20:20)
[2018-08-09] MEDS: MIRALAX *UNIT DOSE* 17GM PACKET PO (08:34)
[2018-08-09] MEDS: FUROSEMIDE 100 MG/10 ML VIAL (J1940) IV (09:48)
[2018-08-09] MEDS: TORSEMIDE 20 MG TAB PO (18:12)
[2018-08-09] MEDS: PANTOPRAZOLE 40MG TAB (PROTONIX) PO (20:20)
[2018-08-09] MEDS: zolPIDEM TARTRATE 5 MG TAB PO (22:54)
[2018-08-10] MEDS: SLF 3 ML SYR IV ×3 (05:59→21:17)
[2018-08-10] MEDS ORDERED: TORSEMIDE 20 MG TAB PO (09:00)
[2018-08-10] MEDS: ATENOLOL 50 MG TAB PO ×2 (09:00→20:35)
[2018-08-10] MEDS: MIRALAX *UNIT DOSE* 17GM PACKET PO (09:00)
[2018-08-10] MEDS: SPIRONOLACTONE 12.5MG PER 1/2 TABLET PO (09:01)
[2018-08-10] MEDS: TORSEMIDE 20 MG TAB PO ×2 (09:02→17:17)
[2018-08-10] MEDS: AMIODARONE 200 MG TAB (PACERONE) PO ×2 (09:03→20:32)
[2018-08-10] MEDS: LOSARTAN 50 MG TAB PO ×2 (09:04→20:35)
[2018-08-10] MEDS: APIXABAN 2.5 MG TAB (ELIQUIS) PO ×2 (09:04→20:32)
[2018-08-10] MEDS: PANTOPRAZOLE 40MG TAB (PROTONIX) PO (20:32)
[2018-08-11] MEDS: SLF 3 ML SYR IV ×3 (05:21→21:17)
[2018-08-11 05:41] LABS: ANION GAP 10 MEQ/L (8-16); BLOOD UREA NITROGEN 36 MG/DL (7-18); CALCIUM LEVEL 9.3 MG/DL (8.8-10.2); CARBON DIOXIDE LEVEL 28 MEQ/L (21-32); CHLORIDE LEVEL 99 MEQ/L (98-107); CREATININE FOR GFR 1.55 MG/DL (0.55-1.30); GLOMERULAR FILTRATION RATE 33.7 (>32); GLUCOSE, FASTING 103 MG/DL (70-100); POTASSIUM SERUM 3.7 MEQ/L (3.5-5.1); SODIUM LEVEL 137 MEQ/L (136-145)
[2018-08-11] MEDS: ATENOLOL 50 MG TAB PO ×2 (08:48→20:29)
[2018-08-11] MEDS: SPIRONOLACTONE 12.5MG PER 1/2 TABLET PO (08:48)
[2018-08-11] MEDS: TORSEMIDE 20 MG TAB PO (08:48)
[2018-08-11] MEDS: APIXABAN 2.5 MG TAB (ELIQUIS) PO ×2 (08:48→20:26)
[2018-08-11] MEDS: AMIODARONE 200 MG TAB (PACERONE) PO ×2 (08:49→20:26)
[2018-08-11] MEDS: MIRALAX *UNIT DOSE* 17GM PACKET PO (08:49)
[2018-08-11] MEDS: LOSARTAN 50 MG TAB PO (08:49)
[2018-08-11] MEDS: PANTOPRAZOLE 40MG TAB (PROTONIX) PO (20:26)
[2018-08-12] MEDS: SLF 3 ML SYR IV ×3 (05:25→20:29)
[2018-08-12 06:14] LABS: ANION GAP 11 MEQ/L (8-16); BLOOD UREA NITROGEN 41 MG/DL (7-18); CALCIUM LEVEL 9.4 MG/DL (8.8-10.2); CARBON DIOXIDE LEVEL 26 MEQ/L (21-32); CHLORIDE LEVEL 100 MEQ/L (98-107); CREATININE FOR GFR 1.82 MG/DL (0.55-1.30); GLUCOSE, FASTING 95 MG/DL (70-100); POTASSIUM SERUM 3.8 MEQ/L (3.5-5.1); SODIUM LEVEL 137 MEQ/L (136-145)
[2018-08-12] MEDS: TORSEMIDE 20 MG TAB PO (08:39)
[2018-08-12] MEDS: ATENOLOL 50 MG TAB PO ×2 (08:39→20:28)
[2018-08-12] MEDS: APIXABAN 2.5 MG TAB (ELIQUIS) PO ×2 (08:40→20:28)
[2018-08-12] MEDS: LOSARTAN 50 MG TAB PO (08:40)
[2018-08-12] MEDS: AMIODARONE 200 MG TAB (PACERONE) PO ×2 (08:40→20:28)
[2018-08-12] MEDS: SPIRONOLACTONE 12.5MG PER 1/2 TABLET PO (08:40)
[2018-08-12] MEDS: MIRALAX *UNIT DOSE* 17GM PACKET PO (08:41)
[2018-08-12] MEDS: NS 500 ML IV (11:45)
[2018-08-12] MEDS: PANTOPRAZOLE 40MG TAB (PROTONIX) PO (20:28)
[2018-08-12] MEDS: zolPIDEM TARTRATE 5 MG TAB PO (22:55)
[2018-08-13] MEDS: SLF 3 ML SYR IV ×3 (05:11→20:35)
[2018-08-13 07:34] LABS: ANION GAP 7 MEQ/L (8-16); BLOOD UREA NITROGEN 40 MG/DL (7-18); CALCIUM LEVEL 8.8 MG/DL (8.8-10.2); CARBON DIOXIDE LEVEL 28 MEQ/L (21-32); CHLORIDE LEVEL 102 MEQ/L (98-107); CREATININE FOR GFR 1.58 MG/DL (0.55-1.30); GLUCOSE, FASTING 89 MG/DL (70-100); POTASSIUM SERUM 3.8 MEQ/L (3.5-5.1); SODIUM LEVEL 137 MEQ/L (136-145)
[2018-08-13] MEDS: ATENOLOL 50 MG TAB PO ×2 (07:50→20:34)
[2018-08-13] MEDS: MIRALAX *UNIT DOSE* 17GM PACKET PO (07:51)
[2018-08-13] MEDS: SPIRONOLACTONE 12.5MG PER 1/2 TABLET PO (07:51)
[2018-08-13] MEDS: APIXABAN 2.5 MG TAB (ELIQUIS) PO ×2 (07:51→20:34)
[2018-08-13] MEDS: AMIODARONE 200 MG TAB (PACERONE) PO ×2 (07:51→20:34)
[2018-08-13] MEDS: TORSEMIDE 20 MG TAB PO (07:51)
[2018-08-13] MEDS: PANTOPRAZOLE 40MG TAB (PROTONIX) PO (20:34)
[2018-08-13] MEDS: LOSARTAN 50 MG TAB PO (20:34)
[2018-08-13] MEDS: zolPIDEM TARTRATE 5 MG TAB PO (22:06)
[2018-08-14] MEDS: SLF 3 ML SYR IV (05:25)
[2018-08-14 06:45] LABS: BASO # 0.1 10^3/uL (0.0-0.2); BASO % 0.7 % (0.0-1.0); EOS # 0.2 10^3/uL (0.0-0.50); HEMATOCRIT 36.7 % (36.0-47.0); HEMOGLOBIN 12.3 g/dl (12.0-15.5); IMMATURE GRANULOCYTE % 0.6 % (0-3.0); LYMPH % 29.5 % (24.0-44.0); MEAN CORPUSCULAR HEMOGLOBIN 30.4 pg (27.0-33.0); MEAN CORPUSCULAR HGB CONC 33.5 g/dl (32.0-36.5); MEAN CORPUSCULAR VOLUME 90.8 fl (80.0-96.0); MONO # 1.3 10^3/uL (0.0-0.8); MONO % 18.9 % (0.0-5.0); NEUTROPHILS # 3.2 10^3/uL (1.8-7.7); NEUTROPHILS % 47.3 % (36.0-66.0); PLATELET COUNT, AUTOMATED 386 10^3/uL (150-450); RED BLOOD COUNT 4.04 10^6/uL (4.00-5.40); RED CELL DISTRIBUTION WIDTH 14.7 % (11.5-14.5); WHITE BLOOD COUNT 6.7 10^3/uL (4.0-10.0)
[2018-08-14 07:08] LABS: ALBUMIN 2.9 GM/DL (3.2-5.2); ALBUMIN/GLOBULIN RATIO 0.88 (1.00-1.93); ALKALINE PHOSPHATASE 84 U/L (45-117); ALT/SGPT 23 U/L (12-78); ANION GAP 8 MEQ/L (8-16); AST/SGOT 18 U/L (7-37); BILIRUBIN,TOTAL 0.4 MG/DL (0.2-1.0); BLOOD UREA NITROGEN 35 MG/DL (7-18); CALCIUM LEVEL 9.1 MG/DL (8.8-10.2); CARBON DIOXIDE LEVEL 27 MEQ/L (21-32); CHLORIDE LEVEL 101 MEQ/L (98-107); CREATININE FOR GFR 1.57 MG/DL (0.55-1.30); GLOMERULAR FILTRATION RATE 33.3 (>32); GLUCOSE, FASTING 99 MG/DL (70-100); POTASSIUM SERUM 3.9 MEQ/L (3.5-5.1); SODIUM LEVEL 136 MEQ/L (136-145); TOTAL PROTEIN 6.2 GM/DL (6.4-8.2)
[2018-08-14] MEDS: MIRALAX *UNIT DOSE* 17GM PACKET PO (08:56)
[2018-08-14] MEDS: SPIRONOLACTONE 12.5MG PER 1/2 TABLET PO (08:57)
[2018-08-14] MEDS: TORSEMIDE 20 MG TAB PO (08:57)
[2018-08-14] MEDS: APIXABAN 2.5 MG TAB (ELIQUIS) PO (08:57)
[2018-08-14] MEDS: LOSARTAN 50 MG TAB PO (09:00)
[2018-08-14] MEDS: ATENOLOL 50 MG TAB PO (09:00)
[2018-08-14] MEDS: AMIODARONE 200 MG TAB (PACERONE) PO (09:01)
== END 2018-08-14 14:30 | disposition home or self-care (01) | DRG 291 ==
LOC: M MS4PR 08-12 15:13 → M ED 07:19 → M MS4PR 08-12 15:39 → M ED INP 14:30 → M PCU 15:36
DX: I13.0 Hypertensive heart and chronic kidney disease with heart failure and stage 1 through stage 4 chronic kidney disease, or unspecified chronic kidney disease (principal); I50.31 Acute diastolic (congestive) heart failure; J18.1 Lobar pneumonia, unspecified organism; N17.9 Acute kidney failure, unspecified; I48.0 Paroxysmal atrial fibrillation; G47.33 Obstructive sleep apnea (adult) (pediatric); E78.00 Pure hypercholesterolemia, unspecified; I25.10 Atherosclerotic heart disease of native coronary artery without angina pectoris; M72.2 Plantar fascial fibromatosis; I44.0 Atrioventricular block, first degree; I34.0 Nonrheumatic mitral (valve) insufficiency; N18.3 Chronic kidney disease, stage 3 (moderate); Z86.14 Personal history of Methicillin resistant Staphylococcus aureus infection; Z85.828 Personal history of other malignant neoplasm of skin; Z85.09 Personal history of malignant neoplasm of other digestive organs; Z79.82 Long term (current) use of aspirin; Z79.899 Other long term (current) drug therapy; Z79.01 Long term (current) use of anticoagulants

== ENCOUNTER → 2018-08-20 | Outpatient (REF) | payer MEDICARE, OTHER ==
[~2018-08-20] MED LIST changes: +ACET500T15 PO; -ACET50TAOT PO; +ALDA25TA2 PO; +AMIO200T PO; +AMIT10TA PO; -AMLO5TAB2 PO; +AMLO5TAB4 PO; +ARTI99.0 OU; +ASPI81TAEC PO; +ATEN50TA2 PO; +COZA50TA PO; +DEMA20TA6 PO; +DICL5SOL TOP; +FLUO1CRE2 TOP; +LOPR1TAB7 PO; +OCUVTAB PO
[2018-08-20 12:38] LABS: ALBUMIN 3.3 GM/DL (3.2-5.2); BILIRUBIN,TOTAL 0.4 MG/DL (0.2-1.0); CALCIUM LEVEL 8.7 MG/DL (8.8-10.2); CREATININE FOR GFR 2.08 MG/DL (0.55-1.30); MAGNESIUM LEVEL 2.2 MG/DL (1.8-2.4); PHOSPHORUS LEVEL 4.8 MG/DL (2.5-4.9); POTASSIUM SERUM 4.3 MEQ/L (3.5-5.1)
[2018-08-20 12:39] LABS: TOTAL 25(OH) VITAMIN D 48.8 NG/ML (30.0-100.0)
[2018-08-20 12:51] LABS: INR 1.31; PARTIAL THROMBOPLASTIN TIME 31.2 SECONDS (25.4-37.6); PROTHROMBIN TIME 16.5 SECONDS (12.1-14.4)
== END ==
LOC: M SFHCPLAZ 09:17
PROVIDERS: ATTEND Family Medicine
DX: C22.1 Intrahepatic bile duct carcinoma (principal); I12.9 Hypertensive chronic kidney disease with stage 1 through stage 4 chronic kidney disease, or unspecified chronic kidney disease; E55.9 Vitamin D deficiency, unspecified; N18.3 Chronic kidney disease, stage 3 (moderate)

== ENCOUNTER → 2018-08-31 | Outpatient (REF) | payer MEDICARE, OTHER ==
[~2018-08-31] MED LIST changes: -AMLO5TAB4 PO; +AMLO5TAB6 PO; +LISI40TA PO
[2018-08-31 10:41] LABS: BASO % 0.8 % (0.0-1.0); EOS # 0.1 10^3/uL (0.0-0.50); EOS % 2.4 % (0.0-3.0); HEMATOCRIT 37.2 % (36.0-47.0); HEMOGLOBIN 12.3 g/dl (12.0-15.5); LYMPH # 1.8 10^3/uL (1.5-4.5); MEAN CORPUSCULAR HEMOGLOBIN 30.9 pg (27.0-33.0); MEAN CORPUSCULAR HGB CONC 33.1 g/dl (32.0-36.5); MEAN CORPUSCULAR VOLUME 93.5 fl (80.0-96.0); MONO # 0.7 10^3/uL (0.0-0.8); MONO % 13.4 % (0.0-5.0); NEUTROPHILS # 2.4 10^3/uL (1.8-7.7); PLATELET COUNT, AUTOMATED 216 10^3/uL (150-450); RED BLOOD COUNT 3.98 10^6/uL (4.00-5.40)
[2018-08-31 11:13] LABS: ALBUMIN 3.6 GM/DL (3.2-5.2); CALCIUM LEVEL 8.8 MG/DL (8.8-10.2); CREATININE FOR GFR 1.85 MG/DL (0.55-1.30); FREE T4 1.33 NG/DL (0.76-1.46); GLOMERULAR FILTRATION RATE 27.5 (>32); MAGNESIUM LEVEL 2.3 MG/DL (1.8-2.4); PHOSPHORUS LEVEL 3.3 MG/DL (2.5-4.9); POTASSIUM SERUM 4.5 MEQ/L (3.5-5.1); THYROID STIMULATING HORMONE 1.89 uIU/ML (0.358-3.740)
== END ==
LOC: M SFHCPLAZ 09:19
PROVIDERS: ATTEND Family Medicine
DX: I48.91 Unspecified atrial fibrillation (principal)

== ENCOUNTER → 2018-09-26 | Outpatient (CLI) | payer MEDICARE, OTHER ==
--- NOTE | 2018-09-27 14:46 | PFTRPT ---
Height: 67.00 Inches Weight: 150.00 Lbs BSA: 1.79 Diagnosis: I48.91 DATE OF PROCEDURE: 09/26/2018 ORDERED BY: Dr. Chucky Gongora Spirometry: Study of excellent technical quality. Forced vital capacity normal. FEV1 in proportion. Obstructive index is, therefore, normal. Flow Volume Loop: Expiratory limb of the flow volume loop raises the question of suboptimal effort. Nonspecific reduction in flow rate is suggested. Lung Volumes: Total lung capacity normal. Residual volume is generally in proportion. Diffusing Capacity: Diffusing capacity is reduced but is appropriate for alveolar volume. Airway Mechanics: Airway resistance and conductance are normal. IMPRESSION: Diffusing capacity impairment of unclear etiology. Clinical correlation will be required. MTDD
== END ==
LOC: M CARPUL 10:36
PROVIDERS: ATTEND Family Medicine
DX: I48.91 Unspecified atrial fibrillation (principal)

== ENCOUNTER → 2018-10-02 | Outpatient (REF) | payer MEDICARE, OTHER ==
[2018-10-02 12:02] LABS: BASO % 0.6 % (0.0-1.0); EOS # 0.1 10^3/uL (0.0-0.50); EOS % 1.6 % (0.0-3.0); HEMOGLOBIN 12.4 g/dl (12.0-15.5); MEAN CORPUSCULAR HEMOGLOBIN 31.2 pg (27.0-33.0); MEAN CORPUSCULAR HGB CONC 33.5 g/dl (32.0-36.5); MONO # 0.8 10^3/uL (0.0-0.8); NEUTROPHILS % 57.2 % (36.0-66.0); PLATELET COUNT, AUTOMATED 227 10^3/uL (150-450); RED BLOOD COUNT 3.98 10^6/uL (4.00-5.40)
[2018-10-02 12:39] LABS: ALBUMIN 3.8 GM/DL (3.2-5.2); CREATININE FOR GFR 1.58 MG/DL (0.55-1.30); MAGNESIUM LEVEL 2.2 MG/DL (1.8-2.4); PHOSPHORUS LEVEL 3.4 MG/DL (2.5-4.9); POTASSIUM SERUM 4.9 MEQ/L (3.5-5.1); TOTAL 25(OH) VITAMIN D 57.7 NG/ML (30.0-100.0)
== END ==
LOC: M SFHCPLAZ 09:27
PROVIDERS: ATTEND Family Medicine
DX: I10 Essential (primary) hypertension (principal)

== ENCOUNTER → 2018-11-27 | Outpatient (REF) | payer MEDICARE, OTHER | LOC: M SFHCPLAZ 10:45 | PROVIDERS: ATTEND Family Medicine | DX: C44.619 Basal cell carcinoma of skin of left upper limb, including shoulder (principal) ==

== ENCOUNTER 2018-12-04 08:29 | Emergency (ER) | payer MEDICARE, OTHER ==
[~2018-12-04] VITALS: Ht 170.2 cm; Wt 71.0 kg
[~2018-12-04 08:29] MED LIST changes: -/PANT40TA PO; +LISI40TA52 PO; -LISI40TAB PO
[2018-12-04] MEDS ORDERED: LOSA25TA14 (08:41)
[2018-12-04] MEDS ORDERED: TORS20TA2 (08:41)
[2018-12-04] MEDS ORDERED: PANT40TA3 (08:41)
[2018-12-04] MEDS ORDERED: SPIR-10 (08:41)
[2018-12-04] MEDS ORDERED: ATOR1TAB19 (08:41)
[2018-12-04 10:17] VITALS: BP 136/67
== END 2018-12-04 10:16 | disposition home or self-care (01) ==
LOC: M ED 08:29
DX: L76.21 Postprocedural hemorrhage of skin and subcutaneous tissue following a dermatologic procedure (principal); I48.91 Unspecified atrial fibrillation; I10 Essential (primary) hypertension; Z85.05 Personal history of malignant neoplasm of liver; Z79.899 Other long term (current) drug therapy

== ENCOUNTER → 2018-12-06 | Outpatient (REF) | payer MEDICARE, OTHER ==
[~2018-12-06] MED LIST changes: +ATOR1TAB19; +LOSA25TA14; +PANT40TA3; +SPIR-10; +TORS20TA2
== END ==
LOC: M SFHCPLAZ 17:42
PROVIDERS: ATTEND Family Medicine
DX: C44.619 Basal cell carcinoma of skin of left upper limb, including shoulder (principal)

== ENCOUNTER → 2018-12-12 | Outpatient (CLI) | payer MEDICARE, OTHER ==
--- NOTE | 2018-12-12 15:08 | REPMRS ---
Patient History The patient states she has not had a clinical breast exam in over a year. Patient is postmenopausal and has history of liver cancer at age 73,and squamous cell skin cancer starting at 72. Family history of breast cancer at age 50 or over in paternal aunt, endometrial cancer under age 50 in mother. No Hormone Replacement Therapy Digital Woman Screen Mammo: December 12, 2018 - Exam #: [id number] Bilateral CC and MLO view(s) were taken. Technologist: Imelda Fowler, Technologist Prior study comparison: December 11, 2017, digital woman screen mammo performed at [facility]. December 09, 2016, digital woman screen mammo performed at [facility]. December 09, 2015, digital woman screen mammo performed at [facility]. FINDINGS: There are scattered fibroglandular densities. There has been no change in the appearance of the mammogram from the prior studies. There is a mild amount of scattered fibroglandular density which is fairly symmetric. There is no interval development of dominant mass, architectural distortion, or clustered microcalcification suggestive of malignancy. 3-D tomosynthesis shows no additional findings. Assessment: BI-RADS/ACR category 1 mammogram. Negative Mammogram. Recommendation Routine screening mammogram of both breasts in 1 year (for women over age 40). This mammogram was interpreted with the aid of an FDA-approved computer-aided dectection system. Electronically Signed By: Sonu Yates MD 12/12/18 [id number]
== END ==
LOC: M WHC 10:25
PROVIDERS: ATTEND Family Medicine
DX: Z12.31 Encounter for screening mammogram for malignant neoplasm of breast (principal); Z78.0 Asymptomatic menopausal state; Z85.05 Personal history of malignant neoplasm of liver; Z85.828 Personal history of other malignant neoplasm of skin

== ENCOUNTER → 2019-02-19 | Outpatient (REF) | payer MEDICARE, OTHER | LOC: M SFHCPLAZ 10:03 | PROVIDERS: ATTEND Family Medicine | DX: L90.5 Scar conditions and fibrosis of skin (principal) | CPT/HCPCS: 11603; 17000; 17003; 88305; G0463 ==

== ENCOUNTER → 2019-03-08 | Outpatient (REF) | payer MEDICARE, OTHER ==
[~2019-03-08] MED LIST changes: -MELA5TAB17 PO; +MELA5TAB31 PO
[2019-03-08 11:51] LABS: BASO % 0.6 % (0.0-1.0); EOS # 0.1 10^3/uL (0.0-0.50); EOS % 1.1 % (0.0-3.0); HEMATOCRIT 38.1 % (36.0-47.0); HEMOGLOBIN 12.2 g/dl (12.0-15.5); LYMPH # 2.1 10^3/uL (1.5-4.5); LYMPH % 29.4 % (24.0-44.0); MEAN CORPUSCULAR HEMOGLOBIN 31.5 pg (27.0-33.0); MEAN CORPUSCULAR VOLUME 98.4 fl (80.0-96.0); MONO % 13.4 % (0.0-5.0); NEUTROPHILS % 54.8 % (36.0-66.0); PLATELET COUNT, AUTOMATED 240 10^3/uL (150-450); RED BLOOD COUNT 3.87 10^6/uL (4.00-5.40); WHITE BLOOD COUNT 7.3 10^3/uL (4.0-10.0)
[2019-03-08 13:13] LABS: ALT/SGPT 38 U/L (12-78); BILIRUBIN,TOTAL 0.5 MG/DL (0.2-1.0); BLOOD UREA NITROGEN 38 MG/DL (7-18); CALCIUM LEVEL 9.4 MG/DL (8.8-10.2); CARBON DIOXIDE LEVEL 26 MEQ/L (21-32); CHLORIDE LEVEL 102 MEQ/L (98-107); CREATININE FOR GFR 1.65 MG/DL (0.55-1.30); FREE T4 1.43 NG/DL (0.76-1.46); GLOMERULAR FILTRATION RATE 31.4 (>32); GLUCOSE, FASTING 84 MG/DL (70-100); MAGNESIUM LEVEL 2.5 MG/DL (1.8-2.4); POTASSIUM SERUM 4.6 MEQ/L (3.5-5.1); SODIUM LEVEL 137 MEQ/L (136-145); THYROID PEROXIDASE ANTIBODY < 28.0 U/ML (<60.0); TOTAL PROTEIN 6.7 GM/DL (6.4-8.2)
== END ==
LOC: M SFHCPLAZ 08:57
PROVIDERS: ATTEND Family Medicine
DX: I10 Essential (primary) hypertension (principal)

== ENCOUNTER → 2019-04-01 | Outpatient (CLI) | payer MEDICARE, OTHER ==
--- NOTE | 2019-04-01 09:19 | REP ---
Clinical: History of cholangiocarcinoma. Technique: Real time goldsmith scale ultrasound examination using curved array transducer. Findings: Liver demonstrates slightly coarsened echotexture without focal hepatic lesion identified and surgical clips are identified along the border of the right lobe consistent with the given history of prior right hepatic lobe resection. The pancreas is incompletely evaluated due to interposed bowel gas but visualized portions appear normal. Surgical clips identified in the sebastián hepatis. The patient is known to be status post cholecystectomy. No biliary ductal dilatation is appreciated and the common bile duct measures 6.4 mm diameter. Right kidney is normal in reniform shape without hydronephrosis and measures 9.7 x 5.3 x 5.0 cm with 7 mm cortical simple cyst. No ascites. Impression: 1. Evidence consistent with prior right hepatic resection and cholecystectomy. 2. No focal mass lesion or ascites or adenopathy noted. Electronically Signed by Enrique Brooks MD 04/01/2019 09:11 A
== END ==
LOC: M RAD 08:30
PROVIDERS: ATTEND Family Medicine
DX: C22.1 Intrahepatic bile duct carcinoma (principal)

== ENCOUNTER → 2019-06-04 | Outpatient (REF) | payer MEDICARE, OTHER ==
[~2019-06-04] MED LIST changes: -ARTI99.0 OU; +ARTIDRO2 OU
[2019-06-04 12:21] LABS: ALBUMIN 3.8 GM/DL (3.2-5.2); BILIRUBIN,TOTAL 0.6 MG/DL (0.2-1.0); CALCIUM LEVEL 9.3 MG/DL (8.8-10.2); CHOLESTEROL RISK RATIO 1.472 (<5); CREATININE FOR GFR 1.51 MG/DL (0.55-1.30); GLOMERULAR FILTRATION RATE 34.7 (>32); POTASSIUM SERUM 5.5 MEQ/L (3.5-5.1); TOTAL PROTEIN 6.7 GM/DL (6.4-8.2)
[2019-06-04 12:23] LABS: BASO % 0.3 % (0.0-1.0); EOS # 0.1 10^3/uL (0.0-0.5); EOS % 1.2 % (0.0-3.0); HEMATOCRIT 41.7 % (36.0-47.0); HEMOGLOBIN 13.4 g/dl (12.0-15.5); LYMPH # 1.6 10^3/uL (1.5-5.0); LYMPH % 28.2 % (24.0-44.0); MEAN CORPUSCULAR HEMOGLOBIN 33.1 pg (27.0-33.0); MEAN CORPUSCULAR HGB CONC 32.1 g/dl (32.0-36.5); MONO # 0.7 10^3/uL (0.0-0.8); MONO % 12.5 % (0.0-5.0); NEUTROPHILS # 3.3 10^3/uL (1.5-8.5); NEUTROPHILS % 57.3 % (36.0-66.0); PLATELET COUNT, AUTOMATED 189 10^3/uL (150-450); RED BLOOD COUNT 4.05 10^6/uL (4.00-5.40); WHITE BLOOD COUNT 5.8 10^3/uL (4.0-10.0)
== END ==
LOC: M SFHCPLAZ 08:35
PROVIDERS: ATTEND Family Medicine
DX: I48.91 Unspecified atrial fibrillation (principal); D50.9 Iron deficiency anemia, unspecified; E78.5 Hyperlipidemia, unspecified; Z79.899 Other long term (current) drug therapy

== ENCOUNTER → 2019-09-02 | Outpatient (CLI) | payer MEDICARE, OTHER ==
[2019-09-02 10:58] LABS: BASO # 0.1 10^3/uL (0.0-0.2); BASO % 0.8 % (0.0-1.0); EOS # 0.1 10^3/uL (0.0-0.5); HEMATOCRIT 38.5 % (36.0-47.0); HEMOGLOBIN 12.3 g/dl (12.0-15.5); LYMPH # 2.5 10^3/uL (1.5-5.0); LYMPH % 37.2 % (24.0-44.0); MEAN CORPUSCULAR HEMOGLOBIN 31.9 pg (27.0-33.0); MEAN CORPUSCULAR HGB CONC 31.9 g/dl (32.0-36.5); MONO # 1.3 10^3/uL (0.0-0.8); MONO % 19.1 % (0.0-5.0); NEUTROPHILS # 2.7 10^3/uL (1.5-8.5); NEUTROPHILS % 40.4 % (36.0-66.0); PLATELET COUNT, AUTOMATED 273 10^3/uL (150-450); RED BLOOD COUNT 3.85 10^6/uL (4.00-5.40); WHITE BLOOD COUNT 6.6 10^3/uL (4.0-10.0)
[2019-09-02 11:29] LABS: ALBUMIN 3.7 GM/DL (3.2-5.2); BILIRUBIN,TOTAL 0.5 MG/DL (0.2-1.0); CALCIUM LEVEL 9.3 MG/DL (8.8-10.2); CREATININE FOR GFR 1.57 MG/DL (0.55-1.30); GLOMERULAR FILTRATION RATE 33.2 (>32); MAGNESIUM LEVEL 2.4 MG/DL (1.8-2.4); POTASSIUM SERUM 4.4 MEQ/L (3.5-5.1); TOTAL PROTEIN 6.3 GM/DL (6.4-8.2)
[2019-09-02 12:45] LABS: HEMOGLOBIN A1c 5.7 %
== END ==
LOC: M PLALAB 08:27
PROVIDERS: ATTEND Family Medicine
DX: I10 Essential (primary) hypertension (principal); Z79.899 Other long term (current) drug therapy

== ENCOUNTER → 2019-09-26 | Outpatient (CLI) | payer MEDICARE, OTHER ==
[2019-09-26 11:11] LABS: BILIRUBIN,TOTAL 0.7 MG/DL (0.2-1.0); CALCIUM LEVEL 9.1 MG/DL (8.8-10.2); CREATININE FOR GFR 1.8 MG/DL (0.55-1.30); GLOMERULAR FILTRATION RATE 28.3 (>32); POTASSIUM SERUM 4.3 MEQ/L (3.5-5.1); TOTAL PROTEIN 6.6 GM/DL (6.4-8.2)
== END ==
LOC: M PLALAB 08:27
PROVIDERS: ATTEND Physician Assistant Medical
DX: I50.41 Acute combined systolic (congestive) and diastolic (congestive) heart failure (principal)

== ENCOUNTER → 2019-10-25 | Outpatient (CLI) | payer MEDICARE, OTHER ==
[~2019-10-25] MED LIST changes: -ARTIDRO2 OU; +POLYOPD OU
[2019-10-25 11:08] LABS: BASO % 0.5 % (0.0-1.0); EOS # 0.1 10^3/uL (0.0-0.5); EOS % 1.4 % (0.0-3.0); HEMATOCRIT 41.5 % (36.0-47.0); HEMOGLOBIN 13.6 g/dl (12.0-15.5); LYMPH # 2.1 10^3/uL (1.5-5.0); LYMPH % 31.1 % (24.0-44.0); MEAN CORPUSCULAR HEMOGLOBIN 32.1 pg (27.0-33.0); MEAN CORPUSCULAR HGB CONC 32.8 g/dl (32.0-36.5); MEAN CORPUSCULAR VOLUME 97.9 fl (80.0-96.0); MONO # 1.1 10^3/uL (0.0-0.8); MONO % 16.1 % (0.0-5.0); NEUTROPHILS # 3.3 10^3/uL (1.5-8.5); NEUTROPHILS % 50.6 % (36.0-66.0); PLATELET COUNT, AUTOMATED 283 10^3/uL (150-450); RED BLOOD COUNT 4.24 10^6/uL (4.00-5.40); WHITE BLOOD COUNT 6.6 10^3/uL (4.0-10.0)
[2019-10-25 11:49] LABS: ALBUMIN 4.1 GM/DL (3.2-5.2); BILIRUBIN,TOTAL 0.7 MG/DL (0.2-1.0); CALCIUM LEVEL 9.4 MG/DL (8.8-10.2); CREATININE FOR GFR 1.77 MG/DL (0.55-1.30); FREE T4 1.56 NG/DL (0.76-1.46); GLOMERULAR FILTRATION RATE 28.9 (>32); MAGNESIUM LEVEL 2.7 MG/DL (1.8-2.4); POTASSIUM SERUM 4.5 MEQ/L (3.5-5.1); THYROID STIMULATING HORMONE 1.69 uIU/ML (0.358-3.740); TOTAL PROTEIN 6.8 GM/DL (6.4-8.2)
== END ==
LOC: M PLALAB 08:26
PROVIDERS: ATTEND Family Medicine
DX: I10 Essential (primary) hypertension (principal)

== ENCOUNTER 2019-10-29 09:03 | Emergency (ER) | payer MEDICARE, OTHER ==
[~2019-10-29] VITALS: Ht 170.2 cm; Wt 71.0 kg
[2019-10-29] MEDS ORDERED: ELIQ5TAB (09:11)
--- NOTE | 2019-10-29 10:03 | REP ---
CT BRAIN WITHOUT CONTRAST: HISTORY: Injury in a fall. Patient on blood thinners. Comparison head CT study is reviewed from November 15, 2015. CT FINDINGS: Digital preliminary auto specialty services manager radiograph is unremarkable. On bone window settings, the bony calvarium is intact. No skull fracture is seen. There is a right posterior parietal scalp hematoma at the vertex. Vascular calcification is noted at the skull base bilaterally in the distal internal carotid arteries. Visualized paranasal sinuses are clear. There is no evidence of intracranial hemorrhage. There is moderate generalized volume loss. Small vessel atherosclerotic changes are again seen in the periventricular white matter bilaterally. These findings are unchanged. There is no evidence of acute infarction, extra-axial fluid collection, mass, or midline shift. IMPRESSION: Generalized volume loss and small vessel changes. Vascular calcification. Right posterior parietal scalp hematoma. No skull fracture or acute intracranial injury. Electronically Signed by Barrington Yates MD 10/29/2019 11:00 A
[2019-10-29 10:38] VITALS: BP 130/63
[2019-10-29] MEDS ORDERED: ADACEL/BOOSTRIX VACCINE (DIPHTH/PERTUSS/ACELL/TETANUS)0.5ML SYR (90715) IM ONE (10:45)
== END 2019-10-29 11:05 | disposition home or self-care (01) ==
LOC: M ED 09:03
DX: S50.811A Abrasion of right forearm, initial encounter (principal); S00.03XA Contusion of scalp, initial encounter; S51.011A Laceration without foreign body of right elbow, initial encounter; W19.XXXA Unspecified fall, initial encounter; Y92.481 Parking lot as the place of occurrence of the external cause; Y93.89 Activity, other specified; Y99.8 Other external cause status; I48.20 Chronic atrial fibrillation, unspecified; I10 Essential (primary) hypertension; Z79.899 Other long term (current) drug therapy

== ENCOUNTER → 2020-02-07 | Outpatient (CLI) | payer MEDICARE, OTHER ==
[~2020-02-07] MED LIST changes: +ELIQ5TAB
--- NOTE | 2020-02-08 11:42 | REP ---
BILATERAL SCREENING MAMMOGRAM WITH 3D TOMOSYNTHESIS: Family history of breast cancer in paternal aunt. COMPARISON: Mammogram 12/12/2018 as well as other prior exams. MLO and CC views of both breasts performed with 3D tomosynthesis. Mild scattered fibroglandular tissue is seen. No architectural distortion or clustered microcalcifications are seen bilaterally. There are bilateral vascular calcifications. There is evidence of new bilateral axillary adenopathy. Several enlarged axillary lymph nodes are present bilaterally. The largest on the right measures approximately 2.1 x 1.1 cm and the largest on the left measures approximately 2.5 x 1.1 cm. This is a new finding when compared to the prior mammograms. IMPRESSION: BIRADS 4: BI-RADS/ACR category 4 mammogram. Suspicious Abnormality - biopsy should be considered. ACR 4 suspicious. Bilateral axillary adenopathy. No breast mass is seen and there are no clustered microcalcifications. Recommend CT of the chest with IV contrast to evaluate for other abnormalities in the chest. If the axillary adenopathy is confined to those areas, ultrasound-guided biopsy may be performed. This mammogram was interpreted with the aid of an FDA-approved computer-aided detection system. A. Negative x-ray reports should not delay biopsy if a dominant or clinically suspicious mass is present. B. Four to eight percent of cancers are not identified by x-ray. C. Adenosis and dense breasts may obscure an underlying neoplasm. The patient states that she or he has not had a clinical breast exam in over a year. The patient letter being requested is M4.
== END ==
LOC: M WHC 14:46
PROVIDERS: ATTEND Family Medicine
DX: Z12.31 Encounter for screening mammogram for malignant neoplasm of breast (principal)

== ENCOUNTER → 2020-02-14 | Outpatient (REF) | payer MEDICARE, OTHER ==
[2020-02-14 15:27] LABS: BASO # 0.1 10^3/uL (0.0-0.2); BASO % 0.8 % (0.0-1.0); EOS # 0.1 10^3/uL (0.0-0.5); EOS % 1.6 % (0.0-3.0); HEMATOCRIT 40.2 % (36.0-47.0); LYMPH # 2.5 10^3/uL (1.5-5.0); LYMPH % 40.6 % (24.0-44.0); MEAN CORPUSCULAR HEMOGLOBIN 32.1 pg (27.0-33.0); MEAN CORPUSCULAR HGB CONC 32.3 g/dl (32.0-36.5); MEAN CORPUSCULAR VOLUME 99.3 fl (80.0-96.0); MONO % 17.1 % (0.0-5.0); NEUTROPHILS # 2.4 10^3/uL (1.5-8.5); NEUTROPHILS % 39.6 % (36.0-66.0); PLATELET COUNT, AUTOMATED 205 10^3/uL (150-450); RED BLOOD COUNT 4.05 10^6/uL (4.00-5.40); WHITE BLOOD COUNT 6.1 10^3/uL (4.0-10.0)
[2020-02-14 15:39] LABS: INR 1.29; PARTIAL THROMBOPLASTIN TIME 27.5 SECONDS (25.0-38.4); PROTHROMBIN TIME 15.8 SECONDS (11.8-14.0)
[2020-02-14 17:39] LABS: ALBUMIN 3.8 GM/DL (3.2-5.2); BILIRUBIN,TOTAL 0.6 MG/DL (0.2-1.0); CREATININE FOR GFR 1.81 MG/DL (0.55-1.30); GLOMERULAR FILTRATION RATE 28.2 (>32); POTASSIUM SERUM 4.6 MEQ/L (3.5-5.1); TOTAL PROTEIN 6.5 GM/DL (6.4-8.2)
== END ==
LOC: M PLALAB 12:22
PROVIDERS: ATTEND Family Medicine
DX: C22.1 Intrahepatic bile duct carcinoma (principal); I11.0 Hypertensive heart disease with heart failure; D50.9 Iron deficiency anemia, unspecified; I50.32 Chronic diastolic (congestive) heart failure

== ENCOUNTER → 2020-03-13 | Outpatient (CLI) | payer MEDICARE, OTHER ==
[~2020-03-13] MED LIST changes: -AMIO200T PO; +AMIO200T3 PO; +AMLO1TAB24 PO; +AMLO25TA PO; -AMLO5TAB6 PO; -ATOR1TAB19; +ATOR1TAB19 PO; -ELIQ5TAB; -MELA5TAB31 PO; +MELA5TAB36 PO; +MULT-90 PO; +PANT40TA29; -PANT40TA3; -TORS20TA2; +TORS20TA2 PO
--- NOTE | 2020-03-13 11:20 | REP ---
REASON: Followup axially lymphadenopathy. The latest prior chest CT for comparison is 07/20/2009. The lack of intravenous contrast decreases the sensitivity of the exam. There is extensive mediastinal and hilar adenopathy is also suspected but difficult to evaluate without intravenous contrast. Calcified subcarinal and right hilar lymph nodes are again noted. There is extensive axillary adenopathy which has developed since the last exam. There are no pleural or pericardial effusions. There is no significant change in the appearance of the imaged upper abdomen or imaged osseous structures. Evaluation of the lung gambino shows an unchanged large parenchymal calcification in the right middle lobe. There are bibasilar subsegmental atelectatic changes, fibrotic changes. The small noncalcified pulmonary nodules seen previously in the lingula is now calcified. There is biapical pleural parenchymal scarring status quo. No new abnormal nodules, masses or opacities have developed. IMPRESSION: 1. Adenopathy as described above. 2. Chronic lung field changes as described above. Electronically Signed by Luis A Hanna DO 03/13/2020 03:55 P
== END ==
LOC: M RAD 08:41
PROVIDERS: ATTEND Family Medicine
DX: R59.0 Localized enlarged lymph nodes (principal); R92.8 Other abnormal and inconclusive findings on diagnostic imaging of breast; R91.8 Other nonspecific abnormal finding of lung field

== ENCOUNTER → 2020-03-26 | Outpatient (CLI) | payer MEDICARE, OTHER ==
[~2020-03-26] MED LIST changes: +LIDOCAINE 1% MDV 20ML VIAL As Ordered ONE; +SODIUM BICARBONATE 8.4% INJ 50MEQ 50 ML VIAL As Ordered ONE
[2020-03-26 10:41] VITALS: BP 139/67
== END ==
LOC: M IRPRO 09:03
PROVIDERS: ATTEND Family Medicine
DX: C88.4 Extranodal marginal zone B-cell lymphoma of mucosa-associated lymphoid tissue [MALT-lymphoma] (principal)

== ENCOUNTER → 2020-04-30 | Outpatient (CLI) | payer MEDICARE, OTHER ==
[~2020-04-30] MED LIST changes: -LIDOCAINE 1% MDV 20ML VIAL As Ordered ONE; -SODIUM BICARBONATE 8.4% INJ 50MEQ 50 ML VIAL As Ordered ONE
--- NOTE | 2020-05-29 15:19 | REP ---
NONCONTRAST ENHANCED CT ABDOMEN AND PELVIS COMPARISON: Latest prior for comparison 07/22/2015. REASON FOR EXAM: Abdominal pain. FINDINGS: The lung bases show a large irregular calcification in the right middle lobe unchanged from prior CT of the chest of 03/13/2020, and for which all interested parties should review the report. No new lung base abnormalities have developed since that CT of the chest. Once again, there is evidence of partial hepatectomy status quo. Once again, the spleen is absent. The pancreas, adrenal glands, and kidneys have not changed significant; although difficult to evaluate without intravenous contrast. Multiple renal cysts are suspected status quo. Advanced paraaortic and mesenteric adenopathy has developed since the last abdominal CT. There is peripancreatic adenopathy, which has also developed. There is extensive iliac chain adenopathy bilaterally, which extends deep into the pelvis to include the pelvic side wall lymph nodes bilaterally. This pelvic adenopathy is also rather marked. Secondary to spray artifact arising from a right hip prosthesis multiple pelvic images are obscured. The distal portion of each ureter right greater than left is obscured. There is no significant change in the appearance of the bowel loops. There is colonic diverticulosis. Note is again made of uterine myomatous changes status quo, but difficult to evaluate without intravenous contrast. Bone window technique throughout the examination shows chronic osseous changes status quo. IMPRESSION: Extensive intraabdominal and intrapelvic adenopathy has developed since the last CT as described above. Etiology uncertain. The finding is consistent with neoplasm. Other findings and exam limitations as described above. MTDD
== END ==
LOC: M RAD 11:01
PROVIDERS: ATTEND Family Medicine
DX: C88.4 Extranodal marginal zone B-cell lymphoma of mucosa-associated lymphoid tissue [MALT-lymphoma] (principal); R59.0 Localized enlarged lymph nodes; K57.90 Diverticulosis of intestine, part unspecified, without perforation or abscess without bleeding; N28.1 Cyst of kidney, acquired

== ENCOUNTER → 2020-05-04 | Outpatient (CLI) | payer MEDICARE, OTHER ==
[2020-05-04 19:31] LABS: BASO % 0.5 % (0.0-1.0); EOS # 0.1 10^3/uL (0.0-0.5); EOS % 1.3 % (0.0-3.0); HEMATOCRIT 38.1 % (36.0-47.0); HEMOGLOBIN 12.6 g/dl (12.0-15.5); LYMPH # 2.5 10^3/uL (1.5-5.0); LYMPH % 41.3 % (24.0-44.0); MEAN CORPUSCULAR HGB CONC 33.1 g/dl (32.0-36.5); MEAN CORPUSCULAR VOLUME 99.7 fl (80.0-96.0); MONO % 15.9 % (0.0-5.0); NEUTROPHILS # 2.5 10^3/uL (1.5-8.5); NEUTROPHILS % 40.7 % (36.0-66.0); PLATELET COUNT, AUTOMATED 195 10^3/uL (150-450); RED BLOOD COUNT 3.82 10^6/uL (4.00-5.40); WHITE BLOOD COUNT 6.1 10^3/uL (4.0-10.0)
[2020-05-04 20:05] LABS: ALBUMIN 3.7 GM/DL (3.2-5.2); BILIRUBIN,TOTAL 0.5 MG/DL (0.2-1.0); CALCIUM LEVEL 9.1 MG/DL (8.8-10.2); CREATININE FOR GFR 1.94 MG/DL (0.55-1.30); FREE T4 1.66 NG/DL (0.76-1.46); POTASSIUM SERUM 4.4 MEQ/L (3.5-5.1); THYROID STIMULATING HORMONE 1.44 uIU/ML (0.358-3.740); TOTAL PROTEIN 6.2 GM/DL (6.4-8.2)
[2020-05-04 20:12] LABS: THYROID PEROXIDASE ANTIBODY 32.5 U/ML (<60.0)
[2020-05-04 20:14] LABS: THYROGLOBULIN ANTIBODY 40.9 U/ML (<60.0)
[2020-05-07 03:07] LABS: ANTINUCLEAR ANTIBODIES DIRECT Negative (Negative); H PYLORI SERUM QUANT IgG ABY 0.21 (0.00-0.79)
== END ==
LOC: M PLALAB 13:09
PROVIDERS: ATTEND Family Medicine
DX: C88.4 Extranodal marginal zone B-cell lymphoma of mucosa-associated lymphoid tissue [MALT-lymphoma] (principal); Z79.899 Other long term (current) drug therapy

== ENCOUNTER → 2020-05-12 | Outpatient (CLI) | payer MEDICARE, OTHER ==
--- NOTE | 2020-06-02 16:30 | REP ---
PET CT STUDY HISTORY: Marginal B-cell lymphoma. Staging. COMPARISON: CT study chest from 03/13/2020. CT abdomen and pelvis 04/30/2020. TECHNIQUE: 68 minutes following the intravenous injection of 8.2 mCi dose of F18 fluorodeoxyglucose, whole body PET CT imaging is acquired from the skull vertex to the toes. PET CT FINDINGS: There is mildly hypermetabolic adenopathy in the soft tissues of the supraclavicular fossa with multiple small lymph nodes in this region bilaterally. Maximum standard uptake value ranging up to 5.42. Incidental note is made of mildly hypermetabolic uptake (5.25) in what appears to be an interval nondisplaced fracture of the medial clavicle on the left. There is bilateral hypermetabolic axillary lymphadenopathy, maximum SUV value in the axillary nodes ranges up to 5.15. There is mildly hypermetabolic activity in retroperitoneal periaortic lymphadenopathy in the abdomen to the right and the left of the abdominal aorta. Maximum standard uptake value 5.16. The calcified right lower lobe lung mass is not metabolically active consistent with benign granuloma or hamartoma. There is heidy calcification in the right hilus. No other abnormal hypermetabolic uptake is seen. IMPRESSION: Mildly hypermetabolic lymphadenopathy as above in the supraclavicular, bilateral axillary, and upper abdominal retroperitoneal lymph node distribution. MTDD
== END ==
LOC: M PLARAD 12:23
PROVIDERS: ATTEND Family Medicine
DX: C88.4 Extranodal marginal zone B-cell lymphoma of mucosa-associated lymphoid tissue [MALT-lymphoma] (principal)
CPT/HCPCS: 78816; A9552

== ENCOUNTER → 2020-07-21 | Outpatient (CLI) | payer SELFPAY | LOC: M LABSMTC 13:30 | PROVIDERS: ATTEND Pediatrics | DX: Z20.828 Contact with and (suspected) exposure to other viral communicable diseases (principal) ==

== ENCOUNTER → 2020-08-06 | Outpatient (REF) | payer MEDICARE, OTHER ==
[2020-08-06 11:42] LABS: BASO % 0.6 % (0.0-1.0); EOS # 0.1 10^3/uL (0.0-0.5); EOS % 1.7 % (0.0-3.0); HEMATOCRIT 38.6 % (36.0-47.0); HEMOGLOBIN 12.3 g/dl (12.0-15.5); LYMPH # 1.6 10^3/uL (1.5-5.0); LYMPH % 33.7 % (24.0-44.0); MEAN CORPUSCULAR HEMOGLOBIN 31.9 pg (27.0-33.0); MEAN CORPUSCULAR HGB CONC 31.9 g/dl (32.0-36.5); MEAN CORPUSCULAR VOLUME 100.3 fl (80.0-96.0); MONO # 1.1 10^3/uL (0.0-0.8); MONO % 22.4 % (0.0-5.0); NEUTROPHILS % 41.2 % (36.0-66.0); PLATELET COUNT, AUTOMATED 216 10^3/uL (150-450); RED BLOOD COUNT 3.85 10^6/uL (4.00-5.40); WHITE BLOOD COUNT 4.8 10^3/uL (4.0-10.0)
[2020-08-06 12:25] LABS: CREATININE FOR GFR 1.52 MG/DL (0.55-1.30); GLOMERULAR FILTRATION RATE 34.4 (>32); POTASSIUM SERUM 4.2 MEQ/L (3.5-5.1)
[2020-08-06 12:26] LABS: ALBUMIN 3.6 GM/DL (3.2-5.2); BILIRUBIN,TOTAL 0.5 MG/DL (0.2-1.0); CALCIUM LEVEL 8.9 MG/DL (8.8-10.2); FREE T4 1.59 NG/DL (0.76-1.46); PERCENT SATURATION 21.2 % (13.2-45.0); THYROID STIMULATING HORMONE 1.73 uIU/ML (0.358-3.740); TOTAL PROTEIN 6.1 GM/DL (6.4-8.2)
== END ==
LOC: M SFHCPLAZ 09:07
PROVIDERS: ATTEND Family Medicine
DX: I12.9 Hypertensive chronic kidney disease with stage 1 through stage 4 chronic kidney disease, or unspecified chronic kidney disease (principal); D50.9 Iron deficiency anemia, unspecified; I48.91 Unspecified atrial fibrillation; N18.30 Chronic kidney disease, stage 3 unspecified; C85.80 Other specified types of non-Hodgkin lymphoma, unspecified site

== ENCOUNTER → 2020-09-29 | Outpatient (REF) | payer MEDICARE, OTHER ==
[~2020-09-29] MED LIST changes: -LISI40TA PO; +LISI40TA4 PO
== END ==
LOC: M SFHCPLAZ 10:34
PROVIDERS: ATTEND Family Medicine
DX: C44.621 Squamous cell carcinoma of skin of unspecified upper limb, including shoulder (principal); C44.529 Squamous cell carcinoma of skin of other part of trunk
CPT/HCPCS: 11602; 17000; 17003; 88305; G0463

== ENCOUNTER → 2020-10-13 | Outpatient (REF) | payer MEDICARE, OTHER ==
[~2020-10-13] MED LIST changes: -AMIT10TA PO; +AMIT10TA7 PO; +ASPI-569 PO; -ASPI81TAEC PO
== END ==
LOC: M SFHCPLAZ 09:57
PROVIDERS: ATTEND Family Medicine
DX: C44.622 Squamous cell carcinoma of skin of right upper limb, including shoulder (principal)
CPT/HCPCS: 11602; 88305; G0463

== ENCOUNTER → 2020-11-19 | Outpatient (REF) | payer MEDICARE, OTHER ==
[2020-11-19 10:41] LABS: BASO % 0.6 % (0.0-1.0); EOS # 0.1 10^3/uL (0.0-0.5); EOS % 2.4 % (0.0-3.0); HEMATOCRIT 40.8 % (36.0-47.0); HEMOGLOBIN 13.4 g/dl (12.0-15.5); MEAN CORPUSCULAR HEMOGLOBIN 32.8 pg (27.0-33.0); MEAN CORPUSCULAR HGB CONC 32.8 g/dl (32.0-36.5); MEAN CORPUSCULAR VOLUME 99.8 fl (80.0-96.0); MONO % 19.3 % (2.0-8.0); NEUTROPHILS # 1.9 10^3/uL (1.5-8.5); NEUTROPHILS % 37.5 % (36.0-66.0); PLATELET COUNT, AUTOMATED 193 10^3/uL (150-450); RED BLOOD COUNT 4.09 10^6/uL (4.00-5.40)
[2020-11-19 11:24] LABS: BILIRUBIN,TOTAL 0.6 MG/DL (0.2-1.0); CALCIUM LEVEL 9.2 MG/DL (8.8-10.2); CHOLESTEROL RISK RATIO 2.181 (<5); CREATININE FOR GFR 1.72 MG/DL (0.55-1.30); FREE T4 1.47 NG/DL (0.76-1.46); GLOMERULAR FILTRATION RATE 29.8 (>32); MAGNESIUM LEVEL 2.2 MG/DL (1.8-2.4); POTASSIUM SERUM 3.6 MEQ/L (3.5-5.1); THYROID STIMULATING HORMONE 2.41 uIU/ML (0.358-3.740); TOTAL PROTEIN 6.2 GM/DL (6.4-8.2)
== END ==
LOC: M PLALAB 08:21
PROVIDERS: ATTEND Family Medicine
DX: I50.32 Chronic diastolic (congestive) heart failure (principal); C85.80 Other specified types of non-Hodgkin lymphoma, unspecified site; E78.5 Hyperlipidemia, unspecified; D50.9 Iron deficiency anemia, unspecified

== ENCOUNTER 2020-12-12 10:48 | Inpatient (IN) | payer MEDICARE, OTHER ==
[~2020-12-12] VITALS: Ht 170.2 cm; Wt 78.5 kg
[~2020-12-12 10:48] MED LIST changes: -LOSA25TA14; +LOSA25TA14 PO; -PANT40TA29; +PANT40TA29 PO
--- NOTE | 2020-12-12 11:52 | REP ---
INDICATION: Syncope. COMPARISON: 10/29/2019. TECHNIQUE: CT BRAIN PERFORMED IN THE AXIAL PLANE. CORONAL RECONSTRUCTION IMAGES ARE PERFORMED. FINDINGS: There is moderate atrophy. There is no midline shift or mass effect. Once again there are chronic periventricular small vessel ischemic changes in the white matter bilaterally and symmetrically, unchanged. There is no acute intracranial hemorrhage or extra-axial fluid collection. There are mild vascular calcifications in the carotid siphons. The visualized paranasal sinuses and mastoid air cells are well aerated and clear with no abnormal opacification. There is no skull fracture. IMPRESSION: Stable chronic changes. No acute intracranial hemorrhage, midline shift or mass effect. No skull fracture. <Electronically signed by Medhat Love > 12/12/20 1149
--- NOTE | 2020-12-12 12:02 | REP ---
INDICATION: Syncope. COMPARISON: PET-CT 08/04/2020. TECHNIQUE: CT cervical spine performed in the axial plane, with sagittal and coronal reconstruction images performed. FINDINGS: There is no acute compression fracture or malalignment. There is no prevertebral soft tissue swelling. There is normal cervical lordosis. There is no abnormal density in the spinal canal. There is moderate diffuse spurring of C3 through C7 with posterior spurring at the C4 level causing moderate to severe narrowing of the spinal canal. There is moderate disc space narrowing and subchondral sclerosis at C3-4, C4-5 and C5-6, with mild narrowing at C6-7. There is diffuse arthritic change at the posterior facet joints. Multiple, innumerable mildly enlarged lymph nodes are seen throughout the soft tissues of the neck bilaterally, supraclavicular regions and in the superior mediastinum, in this patient with known history of lymphoma. IMPRESSION: No acute fracture or dislocation. Diffuse degenerative changes. Posterior spurring at the C4 level causes moderate to severe spinal canal narrowing. Multiple innumerable mildly enlarged lymph nodes throughout the soft tissues of the neck and supraclavicular regions bilaterally as well as in the superior mediastinum, in this patient with a known history of lymphoma. <Electronically signed by Medhat Love > 12/12/20 [id number]
--- NOTE | 2020-12-12 12:05 | REP ---
INDICATION: Syncope/near-syncope. COMPARISON: 08/09/2018 as well as other prior exams. TECHNIQUE: SINGLE PORTABLE AP VIEW OF THE CHEST WAS PERFORMED. FINDINGS: Large calcified granuloma in the right lung base is stable. Mild bibasilar fibro atelectatic change without evidence of acute infiltrate. There is calcification of the thoracic aorta. The mediastinal silhouette is unchanged. Slight left ventricular prominence is unchanged. There are degenerative changes of the spine. IMPRESSION: NO ACUTE PULMONARY DISEASE.Stable chronic changes as above. <Electronically signed by Medhat Love > 12/12/20 1202
[2020-12-12 12:10] LABS: BASO % 0.5 % (0.0-1.0); HEMATOCRIT 42.2 % (36.0-47.0); HEMOGLOBIN 14.3 g/dl (12.0-15.5); LYMPH # 0.9 10^3/uL (1.5-5.0); LYMPH % 15.5 % (24.0-44.0); MEAN CORPUSCULAR HEMOGLOBIN 32.6 pg (27.0-33.0); MEAN CORPUSCULAR HGB CONC 33.9 g/dl (32.0-36.5); MEAN CORPUSCULAR VOLUME 96.1 fl (80.0-96.0); MONO # 0.4 10^3/uL (0.0-0.8); MONO % 6.2 % (2.0-8.0); NEUTROPHILS # 4.5 10^3/uL (1.5-8.5); NEUTROPHILS % 76.9 % (36.0-66.0); PLATELET COUNT, AUTOMATED 111 10^3/uL (150-450); RED BLOOD COUNT 4.39 10^6/uL (4.00-5.40); WHITE BLOOD COUNT 5.8 10^3/uL (4.0-10.0)
[2020-12-12] MEDS ORDERED: NS 500 ML IV ONE (12:10)
[2020-12-12 12:19] LABS: INR 1.95; PROTHROMBIN TIME 22.7 SECONDS (12.5-14.3)
[2020-12-12 12:45] LABS: BLOOD UREA NITROGEN 61 MG/DL (7-18); CALCIUM LEVEL 9.7 MG/DL (8.8-10.2); CARBON DIOXIDE LEVEL 25 MEQ/L (21-32); CHLORIDE LEVEL 99 MEQ/L (98-107); CK-MB VALUE MASS 2.1 NG/ML (<3.6); CPK CREATINE PHOSPHOKINASE 125 U/L (26-192); CREATININE FOR GFR 3.76 MG/DL (0.55-1.30); FREE T4 2.34 NG/DL (0.76-1.46); GLOMERULAR FILTRATION RATE 12.1 (>32); GLUCOSE, FASTING 109 MG/DL (70-100); MAGNESIUM LEVEL 2.7 MG/DL (1.8-2.4); MB/CK RELATIVE INDEX 1.68 (< OR =4); POTASSIUM SERUM 4.5 MEQ/L (3.5-5.1); SODIUM LEVEL 136 MEQ/L (136-145); TROPONIN I < 0.02 NG/ML (< 0.10)
[2020-12-12] MEDS ORDERED: ELIQ2.5T PO (13:13)
[2020-12-12] MEDS ORDERED: AMLO1TAB24 PO (13:13)
[2020-12-12] MEDS ORDERED: DICL5SOL TOP (13:13)
[2020-12-12 13:44] LABS: RSV AMPLIFICATION NEGATIVE (NEGATIVE)
[2020-12-12] MEDS ORDERED: zolPIDEM TARTRATE 5 MG TAB PO PRN (14:05)
[2020-12-12] MEDS ORDERED: POLYVINYL ALCOHOL OPHTH SOLN 15 ML(LIQUITEARS) OU PRN (14:05)
--- NOTE | 2020-12-12 14:25 | HPEPDOC ---
General Date of Admission 12/12/20 Date of Service: Dec 12, 2020 Chief Complaint The patient is a 89-year-old female admitted with a reason for visit of Fell / Right Leg And Arm Pain. Source: Patient Exam Limitations: No limitations History of Present Illness Patient is 89 years old female with past mental history of chronic kidney diseases, ITP, status post splenectomy, diastolic CHF, atrial fibrillation, coronary artery diseases presented to the hospital with history of multiple falls. Patient stated that for past 3 weeks she became dizzy, constant. She explained because of dizziness she developed multiple falls for past 2 weeks. Last fall was in the morning. She denied any fever or chills, diarrhea or dysuria. She reported constipation as a chronic problem. In ER patient was found to have positive orthostatic vital signs, EKG negative for acute ischemic changes, no leukocytosis, hemoglobin 14.3, creatinine 3.7 with baseline 1.7, troponin negative. Imaging study negative for fractures Home Medications Scheduled Amiodarone HCl (Amiodarone HCl) 200 Mg Tablet, 200 MG PO DAILY, (Reported) Amitriptyline HCl (Amitriptyline HCl) 10 Mg Tab, 10 MG PO BID, (Reported) Amlodipine Besylate (Amlodipine Besylate) 5 Mg Tablet, 2.5 MG PO BID, (Reported) Apixaban (Eliquis) 2.5 Mg Tablet, 2.5 MG PO BID, (Reported) Atenolol (Atenolol) 50 Mg Tablet, 50 MG PO DAILY, (Reported) Atorvastatin Calcium (Atorvastatin Calcium) 10 Mg Tab, 10 MG PO DAILY, (Reported) Calcium Carbonate/Vitamin D3 (Calcium 600-Vit D3 200 Tablet) 1 Tab Tab, 1 TAB PO BID, (Reported) Losartan Potassium (Losartan Potassium) 25 Mg Tab, 25 MG PO DAILY, (Reported) Multivitamins (Thera M Plus Tablet) 1 Tab Tab, 1 TAB PO DAILY, (Reported) Pantoprazole Sodium (Pantoprazole Sodium) 40 Mg Tab, 40 MG PO DAILY, (Reported) Sucralfate (Carafate) 1 Gm Tab, 1 GM PO BID, (Reported) Torsemide (Torsemide) 20 Mg Tab, 20 MG PO BID, (Reported) Vits A,C,E/Lutein/Minerals (Ocuvite with Lutein Tablet) 1 Tab Tab, 1 TAB PO BID, (Reported) Scheduled PRN Diclofenac Sodium (Diclofenac Sodium) 1.5% 150ML Drops, 25 DROP TOP QID PRN for PAIN, (Reported) APPLY TO KNEES Polyethylene Glycol 3350 (Miralax) 1 Pow Pow, 17 GM PO DAILY PRN for CONSTIPATION, (Reported) Polyvinyl Alcohol (Artificial Tears) 1.4 % Ale, 1 DROP OU QID PRN for DRY EYES, (Reported) Zolpidem Tartrate (Ambien) 5 Mg Tab, 5 MG PO QHS PRN for SLEEP, (Reported) Allergies Coded Allergies: No Known Allergies (Unverified , 10/29/19) Past Medical History Medical History MARGINAL ZONE LYMPHOMA, 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 SAENZ-[facility] QUILCENE 04/20 Family History FATHER: ALIVE 64 YRS, 2 CVA MOTHER: ALIVE 53 YRS, 2 ASTHMA, CAD, ENDOMETRIAL CANCER Social History * Smoker: Denies Alcohol: Denies Drugs: denies A-FIB/CHADSVASC A-FIB History Current/History of A-Fib/PAF?: Yes Current PO Anticoag Therapy: Yes Review of Systems Constitutional: Reports: Other (dizziness); Denies: Chills, Fever Eyes: Denies: Pain ENT: Denies: Head Aches Skin: Denies: Rash Pulmonary: Denies: Dyspnea, Cough Cardiovascular: Denies: Chest Pain Gastrointestinal: Denies: Nausea, Vomiting Genitourinary: Denies: Dysuria, Frequency Hematologic: Denies: Bruising Endocrine: Denies: Polydipsia Musculoskeletal: Denies: Neck Pain Neurological: Reports: Other Symptoms (dizziness); Denies: Weakness Psych: Reports: Mood Normal Physical Examination General Exam: Positive: Alert, Cooperative Eye Exam: Positive: PERRLA Neck Exam: Positive: Supple; Negative: JVD Chest Exam: Positive: Clear to auscultation Heart Exam: Positive: Rate Normal, Irregular Rhythm Telemetry: Positive: Atrial fibrillation Abdomen Exam: Positive: Normal bowel sounds Extremity Exam: Negative: Clubbing, Cyanosis Skin Exam: Positive: Nl turgor and temperature Neuro Exam: Positive: Strength at 5/5 X4 ext, Cranial Nerves 3-12 NL Psych Exam: Positive: Mental status NL Vital Signs Vital Signs Date Time Temp Pulse Resp B/P (MAP) Pulse Ox O2 Delivery O2 Flow Rate FiO2 12/12/20 13:00 67 18 104/54 (71) 86 Room Air 12/12/20 10:49 98.3 Laboratory Data Labs 24H Laboratory Tests 2 12/12/20 11:24: Immature Granulocyte % (Auto) 0.9, Neutrophils (%) (Auto) 76.9H, Lymphocytes (%) (Auto) 15.5L, Monocytes (%) (Auto) 6.2, Eosinophils (%) (Auto) 0.0, Basophils (%) (Auto) 0.5, Neutrophils # (Auto) 4.5, Lymphocytes # (Auto) 0.9L, Monocytes # (Auto) 0.4, Eosinophils # (Auto) 0.0, Basophils # (Auto) 0.0, Nucleated Red Blood Cells % (auto) 0.0, Prothrombin Time 22.7H, Prothromb Time International Ratio 1.95, Anion Gap 12, Glomerular Filtration Rate 12.1L, Calcium Level 9.7, Magnesium Level 2.7H, Total Creatine Kinase 125, Creatine Kinase MB 2.1, Creatine Kinase MB Relative Index 1.68, Troponin I < 0.02, Thyroid Stimulating Hormone (TSH) 3.430, Free Thyroxine 2.34H 12/12/20 12:42: Coronavirus (COVID-19)(PCR) NEGATIVE, Influenza Type A (RT-PCR) NEGATIVE, Influenza Type B (RT-PCR) NEGATIVE, Respiratory Syncytial Virus (PCR) NEGATIVE CBC/BMP Laboratory Tests 12/12/20 11:24 Assessment/Plan Patient is 89 years old female with past mental history of chronic kidney diseases, ITP, status post splenectomy, diastolic CHF, atrial fibrillation, coronary artery diseases presented to the hospital with history of multiple falls. Patient stated that for past 3 weeks she became dizzy, constant. She explained because of dizziness she developed multiple falls for past 2 weeks. Last fall was in the morning. She denied any fever or chills, diarrhea or dysuria. She reported constipation as a chronic problem. In ER patient was found to have positive orthostatic vital signs, EKG negative for acute ischemic changes, no leukocytosis, hemoglobin 14.3, creatinine 3.7 with baseline 1.7, troponin negative. Imaging study negative for fractures Problems (1) Orthostatic hypotension Status: Acute Problem Text: Most likely due to intensive diuresis with torsemide and antihypertensive medication regimen I stopped torsemide, losartan, amlodipine IV fluid (2) Atrial fibrillation Status: Chronic Problem Text: Continue Eliquis Heart rate is under control (3) KENJI (acute kidney injury) Status: Acute Problem Text: Baseline creatinine 1.7 Most likely secondary to intravascular depletion due to diuresis Gentle IV fluid Continue to monitor (4) Falls Status: Acute Problem Text: Most likely secondary to orthostatic hypotension PT/OT (5) Abrasion of right forearm Status: Acute Problem Text: Superficial abrasion Bandage (6) HTN (hypertension) Status: Chronic Problem Text: Blood pressures under control Continue home meds (7) Hyperlipemia Status: Chronic Problem Text: Continue statin (8) Diastolic CHF Status: Chronic Problem Text: Not in acute exacerbation Torsemide to hold due to kidney failure and dehydration Plan / VTE VTE Prophylaxis Ordered?: Yes SHUKRI HUTSON DO Dec 12, 2020 14:25
[2020-12-12 16:34] VITALS: BP 108/58
[2020-12-12 17:00] VITALS: BP_SYST 106; BP_SYST 108; BP_SYST 81; BP_DIAS 55; BP_DIAS 58
[2020-12-12] MEDS: NS 1,000 ML IV SCH (17:07)
[2020-12-12] MEDS: MIRALAX *UNIT DOSE* 17GM PACKET PO PRN (18:40)
[2020-12-12 20:30] VITALS: BP 105/57
[2020-12-12 21:36] VITALS: BP_SYST 118; BP_SYST 127; BP_SYST 131; BP_DIAS 62; BP_DIAS 65; BP_DIAS 67
[2020-12-12] MEDS: SUCRALFATE 1 GM TAB PO SCH (21:56)
[2020-12-12] MEDS: OCUVITE 1 TAB PO SCH (21:57)
[2020-12-12] MEDS: ACETAMINOPHEN TAB 650MG DOSE (2X325MG) PO PRN (21:57)
[2020-12-12] MEDS: AMITRIPTYLINE 10MG TABLET PO SCH (21:57)
[2020-12-12] MEDS: APIXABAN 2.5 MG TAB (ELIQUIS) PO SCH (21:57)
[2020-12-12 22:00] VITALS: BP 105/57
[2020-12-13] MEDS: NS 1,000 ML IV SCH ×3 (01:08→20:28)
[2020-12-13] MEDS ORDERED: MOM 30ML SUSPENSION UDC PO ONE (01:45)
[2020-12-13 06:00] VITALS: BP 107/59
[2020-12-13 06:26] LABS: HEMATOCRIT 39.7 % (36.0-47.0); HEMOGLOBIN 13.5 g/dl (12.0-15.5); MEAN CORPUSCULAR HEMOGLOBIN 31.9 pg (27.0-33.0); MEAN CORPUSCULAR VOLUME 93.9 fl (80.0-96.0); PLATELET COUNT, AUTOMATED 115 10^3/uL (150-450); RED BLOOD COUNT 4.23 10^6/uL (4.00-5.40)
[2020-12-13 06:33] VITALS: BP_SYST 120; BP_SYST 123; BP_SYST 92; BP_DIAS 54; BP_DIAS 60; BP_DIAS 61
[2020-12-13] MEDS: ACETAMINOPHEN TAB 650MG DOSE (2X325MG) PO PRN ×2 (06:33→20:29)
[2020-12-13 06:52] LABS: ALBUMIN 2.8 GM/DL (3.2-5.2); CALCIUM LEVEL 8.4 MG/DL (8.8-10.2); CREATININE FOR GFR 3.56 MG/DL (0.55-1.30); GLOMERULAR FILTRATION RATE 12.9 (>32); MAGNESIUM LEVEL 2.4 MG/DL (1.8-2.4); TOTAL PROTEIN 4.8 GM/DL (6.4-8.2)
[2020-12-13 09:00] VITALS: BP 106/59
[2020-12-13] MEDS ORDERED: ATORVASTATIN 10 MG TAB PO SCH (09:00)
[2020-12-13] MEDS ORDERED: AMIODARONE 200 MG TAB (PACERONE) PO SCH (09:00)
[2020-12-13] MEDS ORDERED: atenoloL 50 MG TAB PO SCH (09:00)
[2020-12-13] MEDS: PANTOPRAZOLE 40MG TAB (PROTONIX) PO SCH (10:18)
[2020-12-13] MEDS: OCUVITE 1 TAB PO SCH ×2 (10:18→20:29)
[2020-12-13] MEDS: APIXABAN 2.5 MG TAB (ELIQUIS) PO SCH ×2 (10:19→20:29)
[2020-12-13] MEDS: AMITRIPTYLINE 10MG TABLET PO SCH ×2 (10:20→20:29)
[2020-12-13] MEDS: SUCRALFATE 1 GM TAB PO SCH ×2 (10:20→20:29)
[2020-12-13] MEDS: MULTIVITAMINS/MINERALS THERAP 1 TAB PO SCH (10:20)
[2020-12-13] MEDS: MIRALAX *UNIT DOSE* 17GM PACKET PO PRN (10:26)
--- NOTE | 2020-12-13 12:00 | REP ---
INDICATION: abd pain COMPARISON: 04/30/2020. TECHNIQUE: CT Scan of the abdomen and pelvis was performed without intravenous contrast. Sagittal and coronal reconstruction images performed. FINDINGS: Lung bases: There are small bilateral pleural effusions with dependent parenchymal opacities representing atelectasis or infiltrate. Large parenchymal calcification is again seen in the right middle lobe. Subcentimeter nodule in the lingula is stable. There is mild cardiomegaly. Liver: Grossly unremarkable. Surgical clips are seen along the posterior liver margin. Gallbladder: Not visualized. Spleen: There appears to have been a prior splenectomy. Adrenals: Normal. Pancreas: Grossly unremarkable.. Kidneys: No hydronephrosis. Ureters demonstrate no dilatation or calculus. There is a punctate calcification in the lower pole the left kidney. There are cystic structures of the left kidney, the largest in the lower pole measures approximately 4 cm in diameter. Small and large bowel: There is diffuse colonic diverticulosis. There is no definite acute bowel inflammation. There is no free air or obstruction. Free fluid: There is mild scattered free fluid in the abdomen and pelvis.. Abdominal aorta: No aneurysm. Adenopathy: There is significant increase in size and number of multiple lymph nodes throughout the abdomen and pelvis. There is extensive bulky periaortic adenopathy present. Bulky adenopathy is present in the region of the pelvic sidewalls. Adenopathy extends into the left inguinal region. Multiple small soft tissue nodules are seen throughout the omentum small nodules are also seen in the left chest wall laterally. There is diffuse edema throughout the mesenteric and omental fat. Appendix: Not inflamed. Osseous structures: There are degenerative changes of the spine without compression deformity. Metallic right hip prosthesis is noted. Pelvis: No bladder calculus seen. IMPRESSION: There are small bilateral pleural effusions with dependent parenchymal opacities representing atelectasis or infiltrate. There is significant increase in size and number of multiple lymph nodes throughout the abdomen and pelvis. There is extensive bulky periaortic adenopathy present. Bulky adenopathy is present in the region of the pelvic sidewalls. Adenopathy extends into the left inguinal region. Multiple small soft tissue nodules are seen throughout the omentum small nodules are also seen in the left chest wall laterally. There is diffuse edema throughout the mesenteric and omental fat. <Electronically signed by Medhat Love > 12/13/20 [id number]
[2020-12-13 13:36] VITALS: BP_SYST 106; BP_SYST 111; BP_SYST 112; BP_DIAS 59; BP_DIAS 60; BP_DIAS 64
[2020-12-13 14:00] VITALS: BP 111/61
--- NOTE | 2020-12-13 14:10 | IPNPDOC ---
Text Note Date of Service The patient was seen on 12/13/20. NOTE Subjective: No any acute events overnight. In the morning patient was complai henrique of mild abdominal crampy pain. After laxatives patient had bowel movements. Objective: GENERAL APPEARANCE: NAD HEENT: no scleral icterus, no JVD, EOMI CARDIOVASCULAR: Irregularly irregular LUNGS: Diminished lung sounds bilaterally ABDOMEN: soft & not tender w palpitation MUSCULOSKELETAL: no cyanosis, no swelling INTEGUMENT: no generalized pallor NEUROLOGICAL: cranial nerve function from 2-12 intact intact, follows commands, speech not dysarthric Assessment/Plan Patient is 89 years old female with past mental history of chronic kidney diseases, ITP, status post splenectomy, diastolic CHF, atrial fibrillation, coronary artery diseases presented to the hospital with history of multiple falls. Patient stated that for past 3 weeks she became dizzy, constant. She explained because of dizziness she developed multiple falls for past 2 weeks. Last fall was in the morning. She denied any fever or chills, diarrhea or dysuria. She reported constipation as a chronic problem. In ER patient was found to have positive orthostatic vital signs, EKG negative for acute ischemic changes, no leukocytosis, hemoglobin 14.3, creatinine 3.7 with baseline 1.7, troponin negative. Imaging study negative for fractures Problems (1) Orthostatic hypotension Most likely due to intensive diuresis with torsemide and antihypertensive medication regimen I stopped torsemide, losartan, amlodipine Continue IV fluid (2) Atrial fibrillation Continue Eliquis Heart rate is under control (3) KENJI (acute kidney injury) Baseline creatinine 1.7 Most likely secondary to intravascular depletion due to diuresis Gentle IV fluid Continue to monitor (4) Falls Most likely secondary to orthostatic hypotension PT/OT (5) Abrasion of right forearm Superficial abrasion Bandage (6) HTN (hypertension) Blood pressures under control Continue home meds with parameters (7) Hyperlipemia Continue statin (8) Diastolic CHF Not in acute exacerbation Torsemide to hold due to kidney failure and dehydration Abdominal pain Most likely attributed to lymphoma CT showed There are small bilateral pleural effusions with dependent parenchymal opacities representing atelectasis or infiltrate. There is significant increase in size and number of multiple lymph nodes throughout the abdomen and pelvis. There is extensive bulky periaortic adenopathy present. Bulky adenopathy is present in the region of the pelvic sidewalls. Adenopathy extends into the left inguinal region. Multiple small soft tissue nodules are seen throughout the omentum small nodules are also seen in the left chest wall laterally. There is diffuse edema throughout the mesenteric and omental fat. Follow-up with corporate real estate specialist oncologist in the outpatient settings History of lymphoma Follow-up with oncologist in the outpatient settings VS,Landon, I+O VS, Lizziee, I+O Laboratory Tests 12/13/20 06:05 Vital Signs Date Time Temp Pulse Resp B/P (MAP) Pulse Ox O2 Delivery O2 Flow Rate FiO2 12/13/20 13:36 66 112/59 (76) 67 111/60 (77) 75 106/64 (78) 12/13/20 06:00 97.6 19 100 Room Air I&O- Last 24 Hours up to 6 AM 12/13/20 06:00 Intake Total 2820 ml Output Total 0 ml Balance 2820 ml SHUKRI HUTSON Dec 13, 2020 14:10
--- NOTE | 2020-12-13 15:39 | ECGEPIP ---
[facility] - ED Test Date: 2020-12-12 Pat Name: MAGDALENE CHAMPAGNE Department: Room: - Gender: Female [employer]ner: ADRIANA : 1930 Requested By: Evon Gongora Order Number: [id number] Reading MD: Geraldo Wilson Measurements Intervals [place] Rate: 67 P: 27 MO: 198 QRS: -42 QRSD: 168 T: 98 QT: 490 QTc: 517 Interpretive Statements Normal sinus rhythm Left bundle branch block new from tracing done 08-09-18 Baseline artifact Electronically Signed on 12-13-2020 15:38:44 EDT by Geraldo Wilson
[2020-12-13 17:59] LABS: CHLORIDE,RANDOM URINE < 10 MEQ/L; SODIUM,RANDOM URINE < 10 MEQ/L
[2020-12-13 18:08] LABS: APPEARANCE, URINE HAZY (CLEAR); BACTERIA, URINE AUTO NEGATIVE (NEGATIVE); BILIRUBIN, URINE AUTO NEGATIVE (NEGATIVE); BLOOD, URINE BLOOD NEGATIVE (NEGATIVE); COLOR, URINE AMBER (YELLOW); GLUCOSE, URINE (UA) AUTO NEGATIVE (NEGATIVE); KETONE, URINE AUTO NEGATIVE (NEGATIVE); LEUKOCYTE ESTERASE, URINE AUTO NEGATIVE (NEGATIVE); NITRITE, URINE AUTO NEGATIVE (NEGATIVE); PROTEIN, URINE AUTO 1+ mg/dL (NEGATIVE); RBC, URINE AUTO 2 /HPF (0-3); SPECIFIC GRAVITY URINE AUTO 1.014 (1.002-1.035); SQUAMOUS EPITHELIAL CELL UR AU 0 /HPF (0-6); UROBILINOGEN, URINE AUTO 0.2 mg/dL (0.0-2.0); WBC, URINE AUTO 2 /HPF (0-3)
[2020-12-13 22:00] VITALS: BP 126/67
[2020-12-13] MEDS ORDERED: FUROSEMIDE 100MG/10ML VIAL (J1940) IV ONE (23:00)
[2020-12-14 00:05] VITALS: BP_SYST 105; BP_SYST 118; BP_DIAS 58; BP_DIAS 61
[2020-12-14] MEDS: ACETAMINOPHEN TAB 650MG DOSE (2X325MG) PO PRN ×2 (02:04→15:00)
[2020-12-14 06:00] VITALS: BP 120/62
[2020-12-14 06:21] VITALS: BP_SYST 118; BP_SYST 85; BP_DIAS 50; BP_DIAS 61
[2020-12-14 06:52] LABS: MAGNESIUM LEVEL 2.5 MG/DL (1.8-2.4); PHOSPHORUS LEVEL 3.9 MG/DL (2.5-4.9); URIC ACID 10.4 MG/DL (2.6-6.0)
[2020-12-14] MEDS: NS 1,000 ML IV SCH ×3 (07:03→21:04)
--- NOTE | 2020-12-14 09:39 | CR ---
CONSULTATION DATE: 12/13/2020 REQUESTING PHYSICIAN: Yasir Maki DO CONSULTING PHYSICIAN: Leopoldo Guzman M.D. REASON FOR CONSULTATION: Management of acute renal failure. CHIEF COMPLAINT: The patient presented to the hospital yesterday with dizziness, lightheadedness and fall. HISTORY OF PRESENT ILLNESS: Debora Whiting is an 89-year-old female with past medical history of marginal zone lymphoma, history of chronic kidney disease, stage 3, baseline creatinine of around 1.7 as of November,. She presented to the hospital yesterday with dizziness, weakness, lightheadedness and falls. For the past three weeks, she is feeling very dizzy. The latest fall was in the morning and she hit her right elbow and right arm. She denies any fevers, chills, diarrhea, nausea, vomiting. Further evaluation in the emergency room showed the patient was in acute renal failure. She had a creatinine of 3.7 on arrival. She was admitted under the hospitalist service and was started on IV fluid hydration because of possible volume depletion. She was on diuretic at home which was held on admission. He was also on atenolol which was stopped and Losartan 25 mg p.o. daily which was stopped on admission despite IV fluid hydration. The patient's renal function has not improved. Her creatinine has only improved from 3.7 to 3.5 today so nephrology service was called for further help in the management of this patient. I saw and evaluated the patient today morning at the bedside. The patient was awake and able to provide her history. PAST MEDICAL HISTORY: 1. Marginal zone lymphoma. 2. History of squamous cell carcinoma of the skin in the past as well. 3. Constipation. 4. Chronic kidney disease stage 3 to at least stage 4, baseline creatinine of 1.7.l 5. Cholangiocarcinoma, status post a right hepatic lobectomy. 6. History of ITT requiring a splenectomy. 7. Recurrent C. diff infection in 2018. 8. History of congestive heart failure with diastolic dysfunction. 9. Moderate pulmonary hypertension. 10. Right middle lobe calcified mass. 11. Coronary artery disease. PAST SURGICAL HISTORY: 1. Status post splenectomy. 2. Status post right hepatic lobectomy. 3. Knee surgeries in the past. 4. Cataract surgery. ALLERGIES: No known drug allergies. FAMILY HISTORY: No significant family history of end-stage renal disease requiring hemodialysis. SOCIAL HISTORY: She denies any smoking, illicit drug abuse or alcohol abuse. REVIEW OF SYSTEMS: Constitutional: She reports dizziness and weakness. Eyes: Denies any blurry vision, double vision. ENT: Denies any dysphagia, odynophagia. Cardiovascular: She denies any chest pain. She does report syncope. Respiratory: She denies any shortness of breath, cough or wheezing. GI: She denies any dysuria. She does report abdominal pain. Genitourinary: She denies any dysuria but she does report decreased urine output. Musculoskeletal: She reports muscle weakness and falls. GRAPHIC TECHNICIAN: She reports syncope and dizziness. Hematological/Oncological: She reports history of ITP and history of marginal zone lymphoma diagnosed last year. All other review of systems is negative. PHYSICAL EXAMINATION: GENERAL: The patient is awake, alert and oriented x3, lying in bed. VITAL SIGNS: Temperature is 97.7 degrees Fahrenheit, blood pressure is 112/59, pulse is 66, respiratory rate of 18, saturating 93% on room air. Intake and output: Urine output recorded since overnight is only 280 mL. Weight on the bed scale is 71.4 kg. HEAD AND NECK: Extraocular muscles are intact. Pupils are equally round and reactive to light. Mucous membranes are moist. JVD is mildly elevated. CARDIOVASCULAR: S1, S2, regular rate. EXTREMITIES: No edema of the bilateral lower extremities. RESPIRATORY: Mildly decreased breath sounds at the bases. ABDOMEN: Soft, mildly tender to deep palpation in the suprapubic region, right and left lower quadrants. There is no rebound tenderness. Bedside bladder scan was done which showed 200 mL of urine. MUSCULOSKELETAL: No clubbing or stenosis. Pulses are 2+. GRAPHIC TECHNICIAN: No focal deficits. Power is 5/5 in all extremities. LABORATORY DATA: CBC showed a WBC of 5, hemoglobin 13.5, platelets 150. INR is 1.95. Urinalysis done today showed 1+ protein, no blood. Random creatinine was 148. Random sodium is less than 10. Chloride was less than 10. BMP done today morning showed a sodium of 135, potassium 4, chloride 100, bicarb 24, BUN 67, creatinine 3.5. It was 3.7 yesterday. Calcium 8.4. Total bilirubin is 1, AST 401, ALT 340, alk phos is 147, albumin is 2.8. Microbiology: Stool occult blood is positive. IMAGING: A CT scan of the abdomen and pelvis was done today morning which showed small bilateral pleural effusions and dependent parenchymal opacities. They are representing atelectasis, significant increase in size of multiple lymph nodes over the abdomen and pelvis. Extensive bulky periaortic lymphadenopathy. Diffuse edema throughout the mesenteric and omental fat. CURRENT INPATIENT MEDICATIONS: The patient's medications were all reviewed by myself. 1. The patient is getting normal saline a 100 mL an hour. 2. Amiodarone 200 mg p.o. daily is being given. 3. Amitriptyline 10 mg p.o. twice a day. 4. Eliquis 2.5 mg p.o. twice a day. 5. Atenolol 50 mg p.o. daily. 6. She was on Lipitor 10 mg p.o. daily which has been stopped. 7. Milk of magnesium 30 mL p.o. one dose. 8. Multivitamin one tablet p.o. daily. 9. Protonix 40 mg p.o. daily. 10. Miralax one dose was given. 11. She is on Carafate 1 gm p.o. twice a day. 12. Ambien 5 mg p.o. q.h.s. ASSESSMENT AND PLAN: 1. Acute oliguric renal failure. The patient got IV fluid hydration overnight. She is almost two liters positive and despite that, she is hypotensive. Urine electrolytes done today showed low FENa which is 0.2% and prerenal urine electrolytes which point towards decreased effect of intravascular volume which can be secondary to decompensated CHF or volume depletion. The patient clinically does not look volume depleted. She had mild JVD and she has been adequately hydrated as well. I am leaning more towards diuresing the patient now and treating it as a decompensated CHF. I have given her one dose of IV Lasix 60 mg. I will see the response. If renal function does not improve, then the possibility of renal replacement therapy will be discussed but before that, I will need to know the prognosis of her marginal zone lymphoma. 2. Orthostatic hypotension. The patient has extensive lymphadenopathy. Although the CT scan does not show any masses in the adrenals, I have ordered cortisol levels for the morning and if they are low, the patient will be started on hydrocortisone. 3. Elevated liver enzymes. The patient has history of right hepatic lobectomy because of cholangiocarcinoma. She is currently on amiodarone and also on statin. Both of these medications have been stopped. Hepatic congestion can also cause elevation of liver enzymes. 4. History of marginal zone lymphoma. I could not find any record of any treatment of marginal zone lymphoma in the hospital documentation. I will need to get more records tomorrow and also ask the patient about recent treatment for lymphoma. The patient has extensive lymphadenopathy through the CT scan which I think is associated with her lymphoma. 5. Atrial fibrillation. Okay to continue Eliquis. Amiodarone has been stopped because of abnormal liver enzymes at this time. 6. History of hypertension. The patient has orthostatic hypotension. All antihypertensives have been held now. 7. Hyperlipidemia. Because of elevated liver enzymes, Lipitor has been stopped. Thank you for involving me in the care of this patient. I shall be happy to follow the patient along with you tomorrow morning.
[2020-12-14] MEDS: OCUVITE 1 TAB PO SCH ×2 (09:45→21:04)
[2020-12-14] MEDS: APIXABAN 2.5 MG TAB (ELIQUIS) PO SCH ×2 (09:45→21:03)
[2020-12-14] MEDS: SUCRALFATE 1 GM TAB PO SCH ×2 (09:45→21:04)
[2020-12-14] MEDS: AMITRIPTYLINE 10MG TABLET PO SCH ×2 (09:45→21:04)
[2020-12-14] MEDS: MULTIVITAMINS/MINERALS THERAP 1 TAB PO SCH (09:45)
[2020-12-14] MEDS: PANTOPRAZOLE 40MG TAB (PROTONIX) PO SCH (09:45)
[2020-12-14 10:30] LABS: BASO % 0.7 % (0.0-1.0); HEMATOCRIT 43.2 % (36.0-47.0); HEMOGLOBIN 14.6 g/dl (12.0-15.5); LYMPH % 16.6 % (24.0-44.0); MEAN CORPUSCULAR HEMOGLOBIN 31.9 pg (27.0-33.0); MEAN CORPUSCULAR HGB CONC 33.8 g/dl (32.0-36.5); MEAN CORPUSCULAR VOLUME 94.5 fl (80.0-96.0); MONO # 0.4 10^3/uL (0.0-0.8); MONO % 7.5 % (2.0-8.0); NEUTROPHILS # 4.2 10^3/uL (1.5-8.5); NEUTROPHILS % 73.8 % (36.0-66.0); PLATELET COUNT, AUTOMATED 104 10^3/uL (150-450); RED BLOOD COUNT 4.57 10^6/uL (4.00-5.40); WHITE BLOOD COUNT 5.7 10^3/uL (4.0-10.0)
[2020-12-14 10:51] LABS: MAGNESIUM LEVEL 2.6 MG/DL (1.8-2.4)
[2020-12-14 11:06] LABS: ALBUMIN 2.8 GM/DL (3.2-5.2); BILIRUBIN,TOTAL 1.5 MG/DL (0.2-1.0); CALCIUM LEVEL 9.4 MG/DL (8.8-10.2); CREATININE FOR GFR 3.89 MG/DL (0.55-1.30); GLOMERULAR FILTRATION RATE 11.6 (>32); POTASSIUM SERUM 4.4 MEQ/L (3.5-5.1); TOTAL PROTEIN 4.9 GM/DL (6.4-8.2)
[2020-12-14] MEDS ORDERED: MIDODRINE 2.5 MG TAB PO SCH (12:00)
[2020-12-14] MEDS ORDERED: NS 1,000 ML IV ONE (12:45)
[2020-12-14 14:00] VITALS: BP_SYST 110; BP_SYST 96; BP_DIAS 53; BP_DIAS 59
--- NOTE | 2020-12-14 14:06 | IPNPDOC ---
Text Note Date of Service The patient was seen on 12/14/20. NOTE Subjective: No any acute events overnight. Patient continues to have positive orthostatic vital signs. In standing position systolic blood pressure dropped to 80s. Objective: GENERAL APPEARANCE: NAD HEENT: no scleral icterus, no JVD, EOMI CARDIOVASCULAR: Irregularly irregular LUNGS: Diminished lung sounds bilaterally ABDOMEN: soft & not tender w palpitation MUSCULOSKELETAL: no cyanosis, no swelling INTEGUMENT: no generalized pallor NEUROLOGICAL: cranial nerve function from 2-12 intact intact, follows commands, speech not dysarthric Assessment/Plan Patient is 89 years old female with past mental history of chronic kidney diseases, ITP, status post splenectomy, diastolic CHF, atrial fibrillation, coronary artery diseases presented to the hospital with history of multiple falls. Patient stated that for past 3 weeks she became dizzy, constant. She explained because of dizziness she developed multiple falls for past 2 weeks. Last fall was in the morning. She denied any fever or chills, diarrhea or dysuria. She reported constipation as a chronic problem. In ER patient was found to have positive orthostatic vital signs, EKG negative for acute ischemic changes, no leukocytosis, hemoglobin 14.3, creatinine 3.7 with baseline 1.7, troponin negative. Imaging study negative for fractures Problems Orthostatic hypotension Multifactorial. Most likely due to intensive diuresis with torsemide and antihypertensive medication regimen. There is concern for lymphoma progression, patient has extensive lymphadenopathy which can cause of compression of venous return torsemide, losartan, amlodipine, atenolol DC Continue IV fluid, added midodrine. Despite of IV fluid resuscitation patient has intravascular depletion and progression of kidney failure with oliguria Await echo result Hydrocortisone level 38.3 Atrial fibrillation Continue Eliquis Heart rate is under control KENJI (acute kidney injury)/ Acute oliguric renal failure Baseline creatinine 1.7 Most likely secondary to intravascular depletion due to diuresis. For past 24 hours urine output was 320 mL Urine sodium less than 10, BUN 75. Low FENa which is 0.2% and prerenal urine electrolytes which point towards decreased effect of intravascular volume Elevated liver enzyme Most likely due to hepatic congestion possibly secondary to marginal cell lymphoma progression or secondary to combination of amiodarone and statin Patient has previous history of cholangiocarcinoma Statin and amiodarone on hold Falls Most likely secondary to orthostatic hypotension PT/OT Abrasion of right forearm Superficial abrasion Bandage HTN (hypertension) Hold antihypertensive medications due to orthostasis Hyperlipemia dc statin 2/2 transaminitis Diastolic CHF BNP elevated today to 2872 Clinically patient is not volume overload Torsemide to hold due to kidney failure and dehydration Abdominal pain Most likely attributed to lymphoma CT showed There are small bilateral pleural effusions with dependent parenchymal opacities representing atelectasis or infiltrate. There is significant increase in size and number of multiple lymph nodes throughout the abdomen and pelvis. There is extensive bulky periaortic adenopathy present. Bulky adenopathy is present in the region of the pelvic sidewalls. Adenopathy extends into the left inguinal region. Multiple small soft tissue nodules are seen throughout the omentum small nodules are also seen in the left chest wall laterally. There is diffuse edema throughout the mesenteric and omental fat. 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 Patient did not received any treatment according to chart review. Follow-up with network coordinator oncologist in the outpatient settings History of lymphoma Follow-up with oncologist in the outpatient settings VS,Landon, I+O VS, Landon, I+O Laboratory Tests 12/14/20 09:56 Vital Signs Date Time Temp Pulse Resp B/P (MAP) Pulse Ox O2 Delivery O2 Flow Rate FiO2 12/14/20 06:21 67 118/61 (80) 74 85/50 (62) 12/14/20 06:00 97.7 17 93 Room Air I&O- Last 24 Hours up to 6 AM 12/14/20 06:00 Intake Total 3270 ml Output Total 280 ml Balance 2990 ml SHUKRI HUTSON DO Dec 14, 2020 14:06
[2020-12-14] MEDS: MIDODRINE 5 MG TAB PO SCH (16:17)
--- NOTE | 2020-12-14 19:12 | REP ---
INDICATION: r/o dvt. COMPARISON: None. TECHNIQUE: Multiple ultrasonographic images of the deep venous structures of the bilateral thigh were obtained from the common femoral vein to the popliteal vein along with Doppler interrogation and color flow Doppler images. FINDINGS: There is no abnormal echogenic material seen within any of the visualized deep venous structures that would suggest acute thrombosis. Coaptation is unremarkable throughout. Doppler interrogation shows an expected response to respiratory variability and augmentation. The color flow images show what appears to be a normal vascular pattern throughout. IMPRESSION: There is no ultrasonographic evidence of deep venous thrombosis involving any of the visualized deep venous structures of the bilateral thigh, as described above. <Electronically signed by Luis A Hanna > 12/14/20 1106
--- NOTE | 2020-12-14 19:19 | REP ---
INDICATION: anuric renal failure. COMPARISON: None. FINDINGS: Multiple ultrasonographic images of the right kidney show the right kidney to measure 9.4 x 3.6 x 4.7 cm. The renal cortical echotexture is unremarkable. There are no masses. There is good corticomedullary differentiation. There is no hydronephrosis. There are no perinephric fluid collections. In the midpole region there is a 1.4 x 1 x 1.1 cm sized anechoic structure consistent with a cyst. Multiple ultrasonographic images of the left kidney show the left kidney to measure 8.6 x 4 x 4.2 cm. The renal cortical echotexture is unremarkable. There are no masses. There are multiple anechoic structures the largest measures 3.3 x 2.8 x 3.9 cm all are consistent with cysts. There is good corticomedullary differentiation. There is no hydronephrosis. There are no perinephric fluid collections. IMPRESSION: Bilateral cysts <Electronically signed by Luis A Hanna > 12/14/201914
--- NOTE | 2020-12-14 20:39 | IPN ---
NEPHROLOGY PROGRESS NOTE DATE: 12/14/2020 SUBJECTIVE: The patient is seen and examined this morning at the bedside. Nursing staff had called me yesterday evening and overnight as well, as the patient has been recurrently orthostatic, and nursing staff has had trouble even getting standing vitals as the patient gets very lightheaded, dizzy and pre-syncopal when she attempts to stand. She has received normal saline at 70 mL an hour overnight and has remained anuric with no significant urine output to the Hernandez catheter and laboratory studies show worsening parameters with ongoing transaminitis and a mild lactic acidosis as well. Her a.m. Cortisol level however did return appropriately elevated. The patient denies any shortness of breath. She reports some abdominal pain with deep palpation. She reports poor appetite but denies vomiting, nausea or diarrhea. OBJECTIVE: PHYSICAL EXAMINATION: VITAL SIGNS: Temperature 97.7, pulse 72, respiratory rate 17, blood pressure 120/62 with a documented decrease to 85/50 when she sits and there was no standing blood pressure done today, saturating 93-94% on room air. INTAKE AND OUTPUT: Intake yesterday was 3.7 liters and urine output was only 280 mL yesterday and only 50 mL during the previous 12-hour period. Weight in the bed scale today is 71 kg. GENERAL APPEARANCE: The patient is seen sitting up in bed, head of the bed elevated 30 degrees, elderly female who is in no apparent distress, who is bright, articulate and a fair historian. HEENT: The extraocular muscles are intact. Tongue is dry. NECK: The neck veins are flat. HEART: Regular, S1, S2. There is absolutely no peripheral edema. There is no dependent edema. LUNGS: Clear to auscultation bilaterally. No crackles, rales or rhonchi. ABDOMEN: Mildly soft to deep palpation, but there is no rebound tenderness and no guarding. She has a Hernandez catheter with minimal urine output. EXTREMITIES: Negative for clubbing, cyanosis, or edema. Her radial pulse is 2+ while she is lying in bed. SKIN: Warm and dry. LABORATORY STUDIES: Sodium 132, potassium 4.4, bicarbonate 20, anion gap 14, BUN 75, creatinine 3.8, GFR 11, lactic acid 3.2, calcium 9.4, magnesium 2.6, AST 440, ALT 350, BNP 2,800, up slightly from 2,500 yesterday. Blood culture is pending. ESR is negative (2). Hemoglobin 14.6, white count 5.7. IMAGING: Echocardiogram is pending. Renal ultrasound and renal Doppler are pending. INPATIENT MEDICATIONS: The patient received a one liter normal saline bolus today and she is on normal saline at 150 mL an hour. Her Atenolol and Atorvastatin are both discontinued. She was started on Midodrine 5 mg p.o. three times a day. Her remainder medications are unchanged as compared to yesterday. PROBLEMS: 1. Acute align-anuric renal failure superimposed on chronic kidney disease stage 3b (baseline GFR is 30 mL per minute) - The patient presented with recurrent falls and has had orthostatic hypotension. Appropriately, her Amlodipine, Losartan and Torsemide and Atenolol have all been held on this admission and she has received IV fluid hydration but with no improvement in her orthostatic vital signs nor in renal failure/urine output. She was also using NSAIDs at home, Ibuprofen twice daily. Her urine electrolytes (urine sodium less than 10, urine chloride less than 10) are consistent with decreased effective circulating volume. I would continue with IV fluids at this time along with Midodrine and monitoring of orthostatic vital signs while we further work up the cause of her orthostatic hypotension. Her a.m. Cortisol level was appropriately elevated. An echocardiogram was completed. Her non-contrast CAT scan of the abdomen is negative for any obstructive uropathy, but I am also getting a renal ultrasound which Doppler to evaluate for any signs of renal vein thrombosis, given that the patient also has a new thrombocytopenia on the labs and elevated LFTs as well. I discussed with the patient that she does not have any urgent dialysis needs at present. We will watch closely for any developing dialysis needs. 2. Orthostatic hypotension etiology is not clear. Her Amlodipine, Atenolol, Losartan and Torsemide which she takes at home have all been discontinued. She has received several liters of IV fluids. She is still orthostatic. Nursing staff is having trouble getting standing vital signs because the patient becomes pre-syncopal. Urine electrolytes are also consistent with decreased effective circulating volume. Continue IV fluids, continue Midodrine. She is not septic. There is no leukocytosis. ESR was negative. She is afebrile. Blood cultures are pending but likely to be negative. Urinalysis was also negative. Echocardiogram is pending. And I am also concerned for any sort of venous thrombosis that may be causing decreased venous return in this patient with a history of malignancy and diffuse lymphadenopathy. There is no sign of any adrenal insufficiency and her a.m. Cortisol level was appropriately elevated. 3. Lactic acidosis it is secondary to orthostatic hypotension and decreased effective circulating volume. Echocardiogram is pending. Continue IV fluids. Continue Midodrine, and we will get another lactic acid this evening. I would have a low threshold to transfer this patient to the ICU if her lactic acid levels rise. 4. Thrombocytopenia it is new. Her platelets are 104 on the labs today. One month ago she had normal platelet levels. I am concerned for any developing venous thrombosis that can cause a decreased cardiac output. Unfortunately the patient cannot have any contrast studies to workup for occult clot, but we will get D-dimer and Dopplers. 5. Elevated LFTs/transaminitis etiology is unknown to me at this point. Primary Team is going to work up with some liver imaging and her statin is also held. 6. Diastolic congestive heart failure the last echocardiogram from 2018 is noted. Diuretics are all held in the setting of decreased effective circulating volume and orthostatic hypotension and a repeat echocardiogram is pending. 7. Plan of care was discussed in detail with Dr. Maki. JOELLEN
[2020-12-14 22:00] VITALS: BP_SYST 138; BP_SYST 141; BP_DIAS 74; BP_DIAS 75
[2020-12-14] MEDS ORDERED: CEPACOL LOZENGE MT PRN (23:15)
[2020-12-15] MEDS ORDERED: BENZONATATE 100 MG CAP PO ONE (01:25)
[2020-12-15] MEDS: NS 1,000 ML IV SCH (03:31)
[2020-12-15 06:00] VITALS: BP 122/64
[2020-12-15 06:52] LABS: HEMATOCRIT 43.9 % (36.0-47.0); HEMOGLOBIN 15.2 g/dl (12.0-15.5); MEAN CORPUSCULAR HEMOGLOBIN 32.3 pg (27.0-33.0); MEAN CORPUSCULAR HGB CONC 34.6 g/dl (32.0-36.5); MEAN CORPUSCULAR VOLUME 93.2 fl (80.0-96.0); PLATELET COUNT, AUTOMATED 133 10^3/uL (150-450); RED BLOOD COUNT 4.71 10^6/uL (4.00-5.40); WHITE BLOOD COUNT 11.4 10^3/uL (4.0-10.0)
[2020-12-15 07:32] LABS: ALBUMIN 2.6 GM/DL (3.2-5.2); BILIRUBIN,TOTAL 1.8 MG/DL (0.2-1.0); CALCIUM LEVEL 9.4 MG/DL (8.8-10.2); CREATININE FOR GFR 4.01 MG/DL (0.55-1.30); GLOMERULAR FILTRATION RATE 11.2 (>32); MAGNESIUM LEVEL 2.4 MG/DL (1.8-2.4); POTASSIUM SERUM 4.8 MEQ/L (3.5-5.1); TOTAL PROTEIN 5.2 GM/DL (6.4-8.2)
[2020-12-15 08:17] LABS: LYMPHOCYTES 16 % (16-44); MONOCYTES 4 % (0-5); NEUTROPHILS 69 % (28-66)
[2020-12-15 08:18] LABS: PLATELET ESTIMATE DECREASED (NORMAL); TOXIC VACUOLATION 2+
[2020-12-15 09:04] VITALS: BP 116/62
[2020-12-15] MEDS: PANTOPRAZOLE 40MG TAB (PROTONIX) PO SCH (09:07)
[2020-12-15] MEDS: MULTIVITAMINS/MINERALS THERAP 1 TAB PO SCH (09:07)
[2020-12-15] MEDS: MIRALAX *UNIT DOSE* 17GM PACKET PO PRN (09:07)
[2020-12-15] MEDS: OCUVITE 1 TAB PO SCH ×2 (09:07→20:28)
[2020-12-15] MEDS: MIDODRINE 5 MG TAB PO SCH ×2 (09:08→12:15)
[2020-12-15] MEDS: AMITRIPTYLINE 10MG TABLET PO SCH (09:08)
[2020-12-15] MEDS: SUCRALFATE 1 GM TAB PO SCH (09:08)
[2020-12-15] MEDS: APIXABAN 2.5 MG TAB (ELIQUIS) PO SCH (09:08)
--- NOTE | 2020-12-15 09:41 | ECHO ---
DATE OF PROCEDURE: 12/14/2020 Age: 89 Gender: Female Height: 170 cm Weight: 71 kg REFERRING PHYSICIAN: Dr. Maki. INDICATION: Syncope. MEASUREMENTS: IVS 1.1 cm LV 3.3 cm LVPW 1.1 cm LA 3.0 cm Aorta 2.8 cm IVC 0.7 cm Mitral E wave velocity 69 A wave 70 E prime septal 5.9 E prime lateral 5.2 FINDINGS: This study is of rather limited technical quality with difficult visualization. Underlying sinus rhythm with wide QRS complex. Left ventricle is normal size. There is normal contractility with the exception of atypical septal motion likely related to underlying conductive system disease. Overall EF estimated around 65 to 70%. Right ventricle is of normal size and systolic function. Both atria appear at least mildly enlarged. Aortic valve is sclerotic but has three cusps and preserved mobility. There are mild degenerative abnormalities of mitral valve with mitral annular calcifications but mobility of leaflets is preserved. Tricuspid valve was poorly seen but grossly appears intact. Pulmonic valve was not seen at all. Trace pericardial effusion is noted. Left pleural effusion is noted. Inferior vena cava is of relatively small caliber and completely collapses with inspiration indicative of likely very low central venous pressure. Aortic root is normal. Aortic arch and abdominal aorta were not well seen. Doppler interrogation reveals no aortic insufficiency and minimal stenosis with mean gradient 8 mmHg. There is trace mitral insufficiency. Tricuspid valve is functionally competent. Pulmonic valve was not well seen. Mitral inflow pattern and tissue Doppler imaging of mitral annulus revealed likely grade 1 diastolic dysfunction. CONCLUSIONS: 1. Study is of limited technical quality, underlying sinus rhythm with wide QRS complex. 2. Normal LV size with atypical septal motion but overall preserved LV systolic function, estimated LVEF 65 to 70%. Grade 1 diastolic dysfunction. 3. Right ventricle is not enlarged. 4. Aortic sclerosis with trivial stenosis and no insufficiency. 5. Trace mitral insufficiency. 6. Likely low central venous pressure. 7. Unable to estimated pulmonary artery pressure. 8. Trace pericardial effusion. 9. Left pleural effusion. MTDD
[2020-12-15 12:10] VITALS: BP 100/52
[2020-12-15] MEDS ORDERED: LORazepam 2 MG/ML VIAL IV PRN (14:50)
[2020-12-15] MEDS ORDERED: SCOPOLAMINE 1MG TRANSDERMAL PATCH TOP PRN (14:50)
[2020-12-15] MEDS ORDERED: MORPHINE 2 MG/ML 1ML VIAL (J2270) IV PRN (14:50)
[2020-12-15] MEDS ORDERED: FLEET ENEMA PR PRN (14:50)
[2020-12-15] MEDS ORDERED: LORazepam 1 MG TAB PO PRN (14:50)
[2020-12-15] MEDS ORDERED: ONDANSETRON 4 MG ORAL DISINTEGRATING TAB PO PRN (14:50)
[2020-12-15] MEDS ORDERED: ONDANSETRON 4MG/2ML VIAL IV PRN (14:50)
[2020-12-15] MEDS ORDERED: MORPHINE 10MG/0.5ML ORAL CONCENTRATE SOLUTION U/D SL PRN (14:50)
[2020-12-15] MEDS ORDERED: HYOSCYAMINE SULFATE 0.125 MG SUBL TABLET PO PRN (15:00)
[2020-12-15] MEDS ORDERED: BISACODYL 10 MG SUPP PR PRN (15:00)
[2020-12-15] MEDS ORDERED: ATROPINE SULFATE 1% OP SOLN 2 ML BTL SL PRN (15:00)
--- NOTE | 2020-12-15 17:39 | IPNPDOC ---
Text Note Date of Service The patient was seen on 12/15/20. NOTE Subjective: No any acute events overnight. Patient continues to have oliguria. Requirements for oxygen increased to 5 L Objective: GENERAL APPEARANCE: NAD HEENT: no scleral icterus, no JVD, EOMI CARDIOVASCULAR: Irregularly irregular LUNGS: Bilateral crackles ABDOMEN: soft & not tender w palpitation MUSCULOSKELETAL: no cyanosis, no swelling INTEGUMENT: no generalized pallor NEUROLOGICAL: cranial nerve function from 2-12 intact intact, follows commands, speech not dysarthric Assessment/Plan Patient is 89 years old female with past mental history of chronic kidney disea ses, ITP, status post splenectomy, diastolic CHF, atrial fibrillation, coronary artery diseases presented to the hospital with history of multiple falls. Patient stated that for past 3 weeks she became dizzy, constant. She explained because of dizziness she developed multiple falls for past 2 weeks. Last fall was in the morning. She denied any fever or chills, diarrhea or dysuria. She reported constipation as a chronic problem. In ER patient was found to have positive orthostatic vital signs, EKG negative for acute ischemic changes, no leukocytosis, hemoglobin 14.3, creatinine 3.7 with baseline 1.7, troponin negative. Imaging study negative for fractures On 12/15/20 due to progressive kidney failure with progressive lymphoma family decided to transfer patient to [facility] Problems Metabolic encephalopathy Secondary to metabolic acidosis combined with respiratory acidosis Prognosis is poor Acute hypoxic respiratory failure Secondary to combined metabolic and respiratory acidosis Orthostatic hypotension Atrial fibrillation KENJI (acute kidney injury)/ Acute oliguric renal failure Elevated liver enzyme Falls Abrasion of right forearm HTN (hypertension) Hyperlipemia Diastolic CHF Abdominal pain History of lymphoma VS,Fishbone, I+O VS, Fishbone, I+O Laboratory Tests 12/15/20 06:19 Vital Signs Date Time Temp Pulse Resp B/P (MAP) Pulse Ox O2 Delivery O2 Flow Rate FiO2 12/15/20 14:30 93 High Flow Cannula 15.0 12/15/20 12:10 97.6 92 36 100/52 (68) I&O- Last 24 Hours up to 6 AM 12/15/20 06:00 Intake Total 3860 ml Output Total 250 ml Balance 3610 ml SHUKRI HUTSON DO Dec 15, 2020 17:39
--- NOTE | 2020-12-15 18:47 | IPN ---
NEPHROLOGY PROGRESS NOTE DATE: 12/15/2020 SUBJECTIVE: Miss Cazares is seen and examined this morning at the bedside. I found her to be doing poorly. She has developed oxygen requirements overnight and is now on 5 liters nasal cannula. She is also less responsive and more lethargic as compared to yesterday and she is also confused thinks that the year is 193. She remains in oliguric renal failure with worsening metabolic acidosis on laboratory studies and I called her this morning to update him on the patient's condition and worsening status. OBJECTIVE: PHYSICAL EXAMINATION: VITAL SIGNS: Temperature 97.6, pulse 92, respiratory rate 36, blood pressure 100/52, saturating 92% on 5 liters nasal cannula. INTAKE AND OUTPUT: Intake yesterday was 2.7 liters. Urine output yesterday was only 150 mL. GENERAL APPEARANCE: This patient is seen sitting up in bed, head of the bed elevated. Elderly female, lethargic and slow to respond with tachypnea at rest but no other signs of acute distress. Makes eye contact. HEENT: Tongue is dry. Nasal cannula is in place. NECK: Supple. Jugular veins are mildly elevated today whereas yesterday they had been completely flat. HEART: Regular, S1, S2. There is no peripheral edema. LUNGS: Diminished breath sounds at the bases and tachypnea and she is on nasal cannula. ABDOMEN: Soft and she does not grimace with moderate palpation. GENITOURINARY: Indwelling Hernandez catheter with minimal to no urine. SKIN: Cool to touch at the peripheries. NEUROLOGICAL: She is oriented to person and she recognizes she is in the hospital but she is not able to carry on a conversation and is otherwise confused and disorientated. INPATIENT MEDICATIONS: The patient was receiving normal saline at 150 mL an hour but that was stopped early this morning. Her other medications are unchanged as compared to yesterday. PROBLEMS: 1. Acute oligoanuric renal failure superimposed on chronic kidney disease stage 3b. (Baseline GFR is 30 mL per minute.) The patient presented recurrent falls and orthostatic hypotension and appropriately her Amlodipine, Losartan, Torsemide and Atenolol were all held on this admission and she received IV fluid hydration for 3 days, but she had no improvement in her orthostasis nor in her renal function. She had an echocardiogram done yesterday that showed low CVP. However, now in the past 24 hours after further fluid administration, the patient is now showing signs of hypervolemia, most notably she is requiring increasing amounts of oxygen. She does continue on Midodrine and her D-dimer did return very elevated as well. Given her worsening clinical condition and increasing metabolic acidosis, I did have a lengthy discussion with her and her son both today, and offered a trial of CRRT with pressor support. However, the family declined aggressive measures and decided to make her comfort measures only. We will of course respect their wishes, and Nephrology is signing off at this time.
--- NOTE | 2020-12-16 16:47 | DS.PDOC ---
Discharge Summary General Date of Admission Dec 14, 2020 at 17:06 Date of Discharge 12/16/20 Discharge Summary PROCEDURES PERFORMED DURING STAY: [None]. ADMITTING DIAGNOSES: Metabolic encephalopathy Orthostatic hypotension Acute hypoxic respiratory failure Atrial fibrillation KENJI (acute kidney injury)/ Acute oliguric renal failure Elevated liver enzyme Falls Abrasion of right forearm HTN (hypertension) Hyperlipemia Diastolic CHF Abdominal pain History of lymphoma DISCHARGE DIAGNOSES: Metabolic encephalopathy Orthostatic hypotension Acute hypoxic respiratory failure Atrial fibrillation KENJI (acute kidney injury)/ Acute oliguric renal failure Elevated liver enzyme Falls Abrasion of right forearm HTN (hypertension) Hyperlipemia Diastolic CHF Abdominal pain History of lymphoma COMPLICATIONS/CHIEF COMPLAINT: Acute Kidney Injury Orthostatic Hypotension. HISTORY OF PRESENT ILLNESS:Patient is 89 years old female with past mental history of chronic kidney diseases, ITP, status post splenectomy, diastolic CHF, atrial fibrillation, coronary artery diseases presented to the hospital with history of multiple falls. Patient stated that for past 3 weeks she became dizzy, constant. She explained because of dizziness she developed multiple falls for past 2 weeks. Last fall was in the morning. She denied any fever or chills, diarrhea or dysuria. She reported constipation as a chronic problem. In ER patient was found to have positive orthostatic vital signs, EKG negative for acute ischemic changes, no leukocytosis, hemoglobin 14.3, creatinine 3.7 with baseline 1.7, troponin negative. Imaging study negative for fractures On 12/15/20 due to progressive kidney failure with progressive lymphoma family decided to transfer patient to [facility] COURSE: Patient on 12/16/20 from cardiorespiratory arrest DISCHARGE MEDICATIONS: Please see below. ALLERGIES: Please see below. PHYSICAL EXAMINATION ON DISCHARGE: VITAL SIGNS: Please see below. GENERAL: HEENT: NECK: CARDIOVASCULAR EXAMINATION: RESPIRATORY EXAMINATION: ABDOMINAL EXAMINATION: EXTREMITIES: SKIN: NEUROLOGICAL EXAMINATION: PSYCHIATRIC EXAMINATION: LABORATORY DATA: Please see below. IMAGING: PROGNOSIS: ACTIVITY: [As tolerated]. DIET: DISCHARGE PLAN: DISPOSITION: 20 . DISCHARGE INSTRUCTIONS: 1. . ITEMS TO FOLLOWUP ON ON OUTPATIENT: 1. . DISCHARGE CONDITION: [Stable]. TIME SPENT ON DISCHARGE: Greater than minutes. Vital Signs/I&Os Vital Signs Date Time Temp Pulse Resp B/P (MAP) Pulse Ox O2 Delivery O2 Flow Rate FiO2 12/15/20 22:47 15.0 12/15/20 14:30 93 High Flow Cannula 12/15/20 12:10 97.6 92 36 100/52 (68) I&O- Last 24 Hours up to 6 AM 12/16/20 06:00 Intake Total 390 ml Output Total 0 ml Balance 390 ml Microbiology Microbiology 12/14/20 Blood Culture - Preliminary, Resulted No Growth after 48 hours. All Specime... 12/13/20 Stool Occult Blood (JULIET) - Final, Complete Discharge Medications Scheduled Amiodarone HCl (Amiodarone HCl) 200 Mg Tablet, 200 MG PO DAILY, (Reported) Amitriptyline HCl (Amitriptyline HCl) 10 Mg Tab, 10 MG PO BID, (Reported) Amlodipine Besylate (Amlodipine Besylate) 5 Mg Tablet, 2.5 MG PO BID, (Reported) Apixaban (Eliquis) 2.5 Mg Tablet, 2.5 MG PO BID, (Reported) Atenolol (Atenolol) 50 Mg Tablet, 50 MG PO DAILY, (Reported) Atorvastatin Calcium (Atorvastatin Calcium) 10 Mg Tab, 10 MG PO DAILY, (Reported) Calcium Carbonate/Vitamin D3 (Calcium 600-Vit D3 200 Tablet) 1 Tab Tab, 1 TAB PO BID, (Reported) Losartan Potassium (Losartan Potassium) 25 Mg Tab, 25 MG PO DAILY, (Reported) Multivitamins (Thera M Plus Tablet) 1 Tab Tab, 1 TAB PO DAILY, (Reported) Pantoprazole Sodium (Pantoprazole Sodium) 40 Mg Tab, 40 MG PO DAILY, (Reported) Sucralfate (Carafate) 1 Gm Tab, 1 GM PO BID, (Reported) Torsemide (Torsemide) 20 Mg Tab, 20 MG PO BID, (Reported) Vits A,C,E/Lutein/Minerals (Ocuvite with Lutein Tablet) 1 Tab Tab, 1 TAB PO BID, (Reported) Scheduled PRN Diclofenac Sodium (Diclofenac Sodium) 1.5% 150ML Drops, 25 DROP TOP QID PRN for PAIN, (Reported) APPLY TO KNEES Polyethylene Glycol 3350 (Miralax) 1 Pow Pow, 17 GM PO DAILY PRN for CONSTIPATION, (Reported) Polyvinyl Alcohol (Artificial Tears) 1.4 % Ale, 1 DROP OU QID PRN for DRY EYES, (Reported) Zolpidem Tartrate (Ambien) 5 Mg Tab, 5 MG PO QHS PRN for SLEEP, (Reported) Allergies Coded Allergies: No Known Allergies (Unverified , 10/29/19) SHUKRI HUTSON DO Dec 16, 2020 16:46
== END 2020-12-16 00:23 | disposition expired | DRG 682 ==
LOC: M ED 10:48 → M ED INP 10:49 → ENRESERV 14:06 → M MSPAV 16:36 → OBSVTOIN 12-14 17:06
PROVIDERS: ADMIT Internal Medicine; ATTEND Internal Medicine
DX: N17.9 Acute kidney failure, unspecified (principal); G93.41 Metabolic encephalopathy; J96.01 Acute respiratory failure with hypoxia; I48.20 Chronic atrial fibrillation, unspecified; I50.32 Chronic diastolic (congestive) heart failure; I13.0 Hypertensive heart and chronic kidney disease with heart failure and stage 1 through stage 4 chronic kidney disease, or unspecified chronic kidney disease; C88.4 Extranodal marginal zone B-cell lymphoma of mucosa-associated lymphoid tissue [MALT-lymphoma]; E87.4 Mixed disorder of acid-base balance; Z51.5 Encounter for palliative care; Z66 Do not resuscitate; I95.1 Orthostatic hypotension; R29.6 Repeated falls; R91.8 Other nonspecific abnormal finding of lung field; D69.6 Thrombocytopenia, unspecified; I27.20 Pulmonary hypertension, unspecified; K59.00 Constipation, unspecified; R74.01 Elevation of levels of liver transaminase levels; I25.10 Atherosclerotic heart disease of native coronary artery without angina pectoris; N18.32 Chronic kidney disease, stage 3b; E78.5 Hyperlipidemia, unspecified; Z98.42 Cataract extraction status, left eye; Z20.822 Contact with and (suspected) exposure to COVID-19; Z96.641 Presence of right artificial hip joint; Z98.41 Cataract extraction status, right eye; Z85.828 Personal history of other malignant neoplasm of skin; Z79.01 Long term (current) use of anticoagulants; Z79.899 Other long term (current) drug therapy; Z90.81 Acquired absence of spleen; Z85.05 Personal history of malignant neoplasm of liver